=== PATIENT | female | born 1980 | race Caucasian/White ===

== ENCOUNTER 2016-10-08 08:20 | Day surgery (SDC) | payer OTHER ==
[2016-10-05 16:01] VITALS: BMI 26.6
[~2016-10-08 08:20] MED LIST: DEXAMETHASONE SOD PHOSPHATE 10 MG/ML 1 ML VIAL IV ONE; HEPARIN SODIUM,PORCINE 5,000 UNIT/ML 1 ML VIAL SQ ONE; HYDROmorphone 1 MG/ML 1 ML SYRINGE IVP PRN; LACTATED RINGERS 1,000 ML IV SCH; ONDANSETRON 4 MG/2 ML VIAL IVP ONE; Pre Op ABX Message 1 EACH MISC MISCELLANE ONE; SCOPOLAMINE 1.5MG/72HR PATCH TRANSDERM ONE
[2016-10-08] MEDS ORDERED: LIDOCAINE 1% 20 ML VIAL (10MG/ML) FOR IV START INTRADERMA ONE (08:56)
[2016-10-08] MEDS ORDERED: KETOROLAC 30 MG/ML 1 ML VIAL ONE (10:26)
[2016-10-08] MEDS ORDERED: PROPOFOL 10 MG/ML 20 ML VIAL IV ONE (10:26)
[2016-10-08] MEDS ORDERED: fentaNYL (PF) 50 MCG/ML 2 ML AMP ONE (10:26)
[2016-10-08] MEDS ORDERED: MIDAZOLAM 2 MG/2 ML VIAL ONE (10:26)
--- NOTE | 2016-10-08 10:30 | P.HPADDEND ---
H&P Addendum H&P Addendum Date: 10/08/16 Patient seen in the preoperative area. The patient has a nevus or possibly an accessory nipple at the 4 o'clock position of the area looked border area because our incision will be likely along the edge of the areola we discussed the options of excision of this nevus. We have decided to remove that at the time of surgery. This will be added to the consent form.
[2016-10-08] MEDS ORDERED: BUPIVACAINE (PF) 0.25% 30 ML VIAL SQ ONE ×2 (10:47)
[2016-10-08] MEDS ORDERED: LACTATED RINGERS 1,000 ML IV ONE (11:07)
[2016-10-08 11:25] VITALS: RESP 16; TEMP 97.5
[2016-10-08] MEDS ORDERED: NALOXONE 0.4 MG/ML 1 ML VIAL IV PRN (11:25)
[2016-10-08] MEDS ORDERED: HYDROcodone/APAP 5-325MG 1 EACH TAB PO PRN (11:30)
--- NOTE | 2016-10-08 11:38 | P.PCN ---
Date of Procedure: 10/08/16 Preoperative Diagnosis: Postoperative Diagnosis: Procedure(s) Performed: PREOPERATIVE DIAGNOSIS: Left breast mass, left breast nevus POSTOPERATIVE DIAGNOSIS: Same PROCEDURE: Breast biopsy with excision left breast nevus SURGEON: Shane EBL: Minimal ANESTHESIA: General COMPLICATIONS: None OPERATIVE PROCEDURE: Patient was placed in the operating table in the supine position. Her left breast was prepped and draped in the usual sterile fashion. An elliptical incision was made around the areolar border in the lower outer quadrant and the nevus was excised with this incision site. Dissection through the subcutaneous breast tissue laterally to the 4:[address] using electrocautery. The patient's palpable mass was excised with the use of electrocautery. The subcutaneous tissues were closed using 3-0 Vicryl sutures and the skin using interrupted 4-0 Monocryl sutures. Steri-Strips and sterile dressings were applied. DISPOSITION: Stable to recovery room Implants: Indications for Procedure: Operative Findings: Description of Procedure:
[2016-10-08] MEDS ORDERED: HYDROcodone/APAP 7.5-325MG 1 EACH TAB PO ONE (12:24)
[2016-10-08 12:38] VITALS: BP 108/70; PULSE 74
== END 2016-10-08 12:58 | disposition home or self-care (01) ==
LOC: OR 08:20
PROVIDERS: ATTEND Surgery
DX: N60.22 Fibroadenosis of left breast (principal); N60.12 Diffuse cystic mastopathy of left breast; D22.5 Melanocytic nevi of trunk; Z79.899 Other long term (current) drug therapy
CPT/HCPCS: 81025; 88305; 88307; 11403; 19101; J2250; J1644; J1100; J2405; J3010; J1885; J2704

== ENCOUNTER 2017-01-06 18:20 | Observation (INO) | payer OTHER ==
[2017-01-06] MEDS ORDERED: KETOROLAC 30 MG/ML 1 ML VIAL IVP STA (18:49)
[2017-01-06] MEDS ORDERED: SODIUM CHLORIDE 0.9% 1,000 ML IV ONE (18:49)
[2017-01-06] MEDS ORDERED: MORPHINE SULFATE 4 MG/ML SYRINGE IVP STA (18:49)
[2017-01-06 19:02] LABS: Basophils # (A) 0.1 k/uL (0-0.2); Basophils % (A) 0 %; CHCM 34.8; Eosinophils # (A) 0.2 k/uL (0-0.7); Eosinophils % (A) 1 %; HCT 42.6 % (34.0-46.0); HDW 2.48; HGB 14.4 gm/dL (11.4-16.0); Luc # (Auto) 0.15; Luc % (Auto) 1; Lymphocytes # (A) 1.7 k/uL (1.0-4.8); Lymphocytes % (A) 10 %; MCH 31.1 pg (25.0-35.0); MCHC 33.7 g/dL (31.0-37.0); MCV 92.3 fL (80.0-100.0); Mean Platelet Volume 7.4; Monocytes # (A) 0.8 k/uL (0-1.0); Monocytes % (A) 5 %; Neutrophils # (A) 13.8 k/uL (1.3-7.7); Neutrophils % (A) 83 %; RBC 4.61 m/uL (3.80-5.40); RDW 12.1 % (11.5-15.5); WBC 16.7 k/uL (3.8-10.6); WBC (Perox) 16.76
[2017-01-06] MEDS ORDERED: ONDANSETRON 4 MG/2 ML VIAL IVP STA (19:03)
[2017-01-06 19:07] LABS: Anion Gap 11 mmol/L; Blood Urea Nitrogen 15 mg/dL (7-17); Calcium 9.7 mg/dL (8.4-10.2); Carbon Dioxide 22 mmol/L (22-30); Chloride 107 mmol/L (98-107); Glucose 91 mg/dL (74-99); Non-African American GFR(MDRD) >60 (>60 ml/min/1.73 sqM); Potassium 4.2 mmol/L (3.5-5.1); Sodium 140 mmol/L (137-145)
[2017-01-06 19:31] LABS: Appearance,Urine Clear (Clear); Bacteria,Urine Many /hpf; Bilirubin,Urine Negative (Negative); Glucose,Urine (UA) Negative (Negative); Ketones,Urine Negative (Negative); Leukocyte Esterase,Urine Small (Negative); Nitrite,Urine Negative (Negative); PH, Urine 7.5 (5.0-8.0); Particle Count 3212; Protein,Urine Negative (Negative); RBC,Urine 2 /hpf (0-5); Specific Gravity,Urine 1.006 (1.001-1.035); Squamous Epithelial Cell,Urine <1 /hpf (0-4); UA Billing (MACRO vs. MICRO) MICRO; Urobilinogen,Urine <2.0 mg/dL (<2.0); WBC,Urine 10 /hpf (0-5)
--- NOTE | 2017-01-06 20:13 | CT ---
EXAMINATION TYPE: CT renal stones wo con DATE OF EXAM: 01/06/2017 HISTORY: Right flank pain CT DLP: 320.10 mGycm. Automated Exposure Control for Dose Reduction was Utilized. TECHNIQUE: CT scan of the abdomen and pelvis is performed without oral or IV contrast. COMPARISON: Previous study dated 12/06/2015 FINDINGS: Visualized portions of the lungs are clear. There is no pleural or pericardial fluid. The h eart is not enlarged. Within the abdomen, the liver, spleen and gallbladder are normal. Both adrenal glands are normal. There is no evidence of nephrolithiasis or hydronephrosis. There are stable phleboliths in the pelvis . No definite ureteral calculus is seen. Limited views of the pancreas are unremarkable. There is no significant retroperitoneal, iliac or inguinal adenopathy. The bladder is unremarkable. The uterus and ovaries are unremarkable. The cystic lesion in the right adnexa has resolved. There is no significant diverticular change and there is no radiographic evidence of diverticulitis. The appendix is normal. Small bowel caliber is normal. There is a small umbilical hernia containing fat only. The mouth measures 6.9 mm. No free air and no free fluid is seen. No bony lesion is seen. IMPRESSION: 1. NO EVIDENCE OF NEPHROLITHIASIS OR HYDRONEPHROSIS. 2. NORMAL APPENDIX. 3. SMALL UMBILICAL HERNIA CONTAINING FAT ONLY. 4. RESOLUTION OF THE CYSTIC MASS IN THE RIGHT ADNEXA.
[2017-01-06] MEDS ORDERED: cefTRIAXone IN SWFI 1,000 MG/10 ML SYRINGE IVP STA (20:31)
[2017-01-06] MEDS ORDERED: HYDROmorphone 1 MG/ML 1 ML SYRINGE IVP STA (20:40)
[2017-01-06] MEDS ORDERED: HYDROmorphone 0.5 MG/0.5 ML SYRINGE IVP PRN (20:42)
[2017-01-06] MEDS ORDERED: MORPHINE SULFATE 4 MG/ML SYRINGE IV PRN (20:42)
[2017-01-06] MEDS ORDERED: NALOXONE 0.4 MG/ML 1 ML VIAL IV PRN (20:42)
[2017-01-06] MEDS ORDERED: OXYMETAZOLINE 0.05% NASL SPRAY 1 SPRAY BOTTLE EA NOSTRIL PRN (20:43)
[2017-01-06] MEDS ORDERED: CYCLOBENZAPRINE 10 MG TAB PO PRN (20:43)
--- NOTE | 2017-01-06 20:45 | ED ---
Abdominal Pain HPI - General Chief Complaint: Abdominal Pain Stated Complaint: kidney stone Time Seen by Provider: 01/06/17 18:29 Source: patient Mode of arrival: ambulatory Limitations: no limitations - History of Present Illness Initial Comments: 36-year-old female presented for evaluation of right-sided flank pain over the last 5 days acutely worsening this morning. She states that originally she just had pain and some dysuria but today the pain acutely worsened to the point where she was unable to bear it or go to work. She denies any hematuria but states she does have increased frequency without foul smell or discoloration. She denies any vaginal bleeding or discharge, constipation or diarrhea, chest pain or shortness of breath. She states in no medications for the symptoms. She states to 3 weeks ago she was treated for urinary tract infection with antibiotics but is unsure what antibiotics they were. - Related Data Home Medications Medication Instructions Recorded Confirmed Cyclobenzaprine [Flexeril] 10 mg PO HS PRN 12/07/15 01/06/17 HYDROcodone/APAP 7.5-325MG [[place] 0.5 - 1 tab PO BID PRN 12/07/15 01/06/17 7.5-325] Gabapentin [Neurontin] 300 mg PO DAILY 10/05/16 01/06/17 Ibuprofen [Motrin] 800 mg PO BID PRN 01/06/17 01/06/17 Multivitamins, Thera [Multivitamin 1 tab PO DAILY 01/06/17 01/06/17 (formulary)] Norethindrone-Ethinyl Estrad 1 tab PO DAILY 01/06/17 01/06/17 [Tri-Norinyl 28 Tablet] Oxymetazoline HCl [Vicks Sinex] 3 spray EA NOSTRIL Q12H PRN 01/06/17 01/06/17 Allergies Allergy/AdvReac Type Severity Reaction Status Date / Time lorazepam [From Ativan] Allergy Rash/Hives Verified 01/06/17 19:27 Review of Systems ROS Statement: Those systems with pertinent positive or pertinent negative responses have been documented in the HPI. ROS Other: All systems not noted in ROS Statement are negative. Constitutional: Reports: chills. Denies: fever Eyes: Denies: eye pain, vision change ENT: Denies: ear pain, throat pain Respiratory: Denies: cough, dyspnea Cardiovascular: Denies: chest pain, palpitations Endocrine: Denies: fatigue, polydipsia Gastrointestinal: Reports: abdominal pain, nausea. Denies: vomiting, diarrhea, constipation, hematemesis, melena, hematochezia Genitourinary: Reports: urgency, dysuria, frequency. Denies: hematuria, discharge, abnormal menses, dyspareunia Musculoskeletal: Reports: back pain. Denies: joint swelling, arthralgia Skin: Denies: rash, lesions Neurological: Denies: headache, weakness Psychiatric: Denies: anxiety, depression Hematological/Lymphatic: Denies: easy bleeding, easy bruising Past Medical History Additional Past Medical History / Comment(s): kidney stones, back pain, L breast density, abnormal pap smears, ABNORMAL MAMMOGRAM, History of Any Multi-Drug Resistant Organisms: None Reported Past Surgical History: No Surgical Hx Reported Additional Past Surgical History / Comment(s): RT OVARIAN CYSTECTOMY/removal of ovary and fallopian tube, left lumpectomy Past Anesthesia/Blood Transfusion Reactions: No Reported Reaction Past Psychological History: No Psychological Hx Reported Smoking Status: Never smoker - Past Family History Son(s) Family Medical History: No Reported History Additional Family Medical History / Comment(s): High functioning autism General Exam Limitations: no limitations General appearance: alert, in distress (Significant) Head exam: Present: atraumatic, normocephalic, normal inspection Eye exam: Present: normal appearance, PERRL, EOMI. Absent: scleral icterus, conjunctival injection, periorbital swelling ENT exam: Present: normal exam, mucous membranes moist Neck exam: Present: normal inspection. Absent: tenderness, meningismus, lymphadenopathy Respiratory exam: Present: normal lung sounds bilaterally. Absent: respiratory distress, wheezes, rales, rhonchi, stridor Cardiovascular Exam: Present: normal rhythm, tachycardia, normal heart sounds. Absent: systolic murmur, diastolic murmur, rubs, gallop, clicks GI/Abdominal exam: Present: soft, normal bowel sounds. Absent: distended, tenderness, guarding, rebound, rigid Rectal exam: Present: deferred Extremities exam: Present: normal inspection, full ROM, normal capillary refill. Absent: tenderness, pedal edema, joint swelling, calf tenderness Back exam: Present: full ROM, CVA tenderness (R), paraspinal tenderness Neurological exam: Present: alert, oriented X3, CN II-XII intact Psychiatric exam: Present: normal affect, normal mood Skin exam: Present: warm, dry, intact, normal color. Absent: rash Course Vital Signs 01/06/17 01/06/17 18:25 20:50 Temperature 98.9 F Pulse Rate 112 H 111 H Respiratory 20 20 Rate Blood Pressure 147/78 113/73 O2 Sat by Pulse 100 100 Oximetry Medical Decision Making - Medical Decision Making 36-year-old female presented for evaluation of right-sided flank pain with radiation to her right lower quadrant abdomen. On physical examination she is in significant distress and is tearful in the bed. Right-sided CVA tenderness and right lower quadrant abdominal tenderness noted. No peritoneal signs of guarding, rigidity, rebound. Concern for pyelonephritis versus ureterolithiasis. Labs significant for leukocytosis as well as UTI. CT renal stone showed no structural uropathy. Patient diagnosed with pyelonephritis and started on IV antibiotics. Further pain control ordered. Patient was discussed with admitting physician who accepted without further request. Admission order placed and bed request submitted. - Lab Data Result diagrams: 01/06/17 18:20 01/06/17 18:20 Lab Results 01/06/17 01/06/17 01/06/17 Range/Units 18:20 18:20 19:00 WBC 16.7 H (3.8-10.6) k/uL RBC 4.61 (3.80-5.40) m/uL Hgb 14.4 (11.4-16.0) gm/dL Hct 42.6 (34.0-46.0) % MCV 92.3 (80.0-100.0) fL MCH 31.1 (25.0-35.0) pg MCHC 33.7 (31.0-37.0) g/dL RDW 12.1 (11.5-15.5) % Plt Count 201 (150-450) k/uL Neutrophils % 83 % Lymphocytes % 10 % Monocytes % 5 % Eosinophils % 1 % Basophils % 0 % Neutrophils # 13.8 H (1.3-7.7) k/uL Lymphocytes # 1.7 (1.0-4.8) k/uL Monocytes # 0.8 (0-1.0) k/uL Eosinophils # 0.2 (0-0.7) k/uL Basophils # 0.1 (0-0.2) k/uL Sodium 140 (137-145) mmol/L Potassium 4.2 (3.5-5.1) mmol/L Chloride 107 (98-107) mmol/L Carbon Dioxide 22 (22-30) mmol/L Anion Gap 11 mmol/L BUN 15 (7-17) mg/dL Creatinine 0.77 (0.52-1.04) mg/dL Est GFR (MDRD) Af Amer >60 (>60 ml/min/1.73 sqM) Est GFR (MDRD) Non-Af >60 (>60 ml/min/1.73 sqM) Glucose 91 (74-99) mg/dL Calcium 9.7 (8.4-10.2) mg/dL HCG, Qual Not Detected Urine Color Urine Appearance (Clear) Urine pH (5.0-8.0) Ur Specific [place] (1.001-1.035) Urine Protein (Negative) Urine Glucose (UA) (Negative) Urine Ketones (Negative) Urine Blood (Negative) Urine Nitrite (Negative) Urine Bilirubin (Negative) Urine Urobilinogen (<2.0) mg/dL Ur Leukocyte Esterase (Negative) Urine RBC (0-5) /hpf Urine WBC (0-5) /hpf Ur Squamous Epith Cells (0-4) /hpf Urine Bacteria (None) /hpf 01/06/17 Range/Units 19:09 WBC (3.8-10.6) k/uL RBC (3.80-5.40) m/uL Hgb (11.4-16.0) gm/dL Hct (34.0-46.0) % MCV (80.0-100.0) fL MCH (25.0-35.0) pg MCHC (31.0-37.0) g/dL RDW (11.5-15.5) % Plt Count (150-450) k/uL Neutrophils % % Lymphocytes % % Monocytes % % Eosinophils % % Basophils % % Neutrophils # (1.3-7.7) k/uL Lymphocytes # (1.0-4.8) k/uL Monocytes # (0-1.0) k/uL Eosinophils # (0-0.7) k/uL Basophils # (0-0.2) k/uL Sodium (137-145) mmol/L Potassium (3.5-5.1) mmol/L Chloride (98-107) mmol/L Carbon Dioxide (22-30) mmol/L Anion Gap mmol/L BUN (7-17) mg/dL Creatinine (0.52-1.04) mg/dL Est GFR (MDRD) Af Amer (>60 ml/min/1.73 sqM) Est GFR (MDRD) Non-Af (>60 ml/min/1.73 sqM) Glucose (74-99) mg/dL Calcium (8.4-10.2) mg/dL HCG, Qual Urine Color Light Yellow Urine Appearance Clear (Clear) Urine pH 7.5 (5.0-8.0) Ur Specific [place] 1.006 (1.001-1.035) Urine Protein Negative (Negative) Urine Glucose (UA) Negative (Negative) Urine Ketones Negative (Negative) Urine Blood Negative (Negative) Urine Nitrite Negative (Negative) Urine Bilirubin Negative (Negative) Urine Urobilinogen <2.0 (<2.0) mg/dL Ur Leukocyte Esterase Small H (Negative) Urine RBC 2 (0-5) /hpf Urine WBC 10 H (0-5) /hpf Ur Squamous Epith Cells <1 (0-4) /hpf Urine Bacteria Many H (None) /hpf Disposition Clinical Impression: Pyelonephritis Disposition: ADMITTED IP TO THIS [facility] Decision to Admit Reason: Admit from EC Decision Date: 01/06/17 Decision Time: 20:42
[2017-01-07] MEDS: HYDROmorphone 0.5 MG/0.5 ML SYRINGE IVP PRN ×3 (01:37→12:07)
[2017-01-07] MEDS: KETOROLAC 30 MG/ML 1 ML VIAL IVP PRN ×3 (01:38→15:27)
[2017-01-07] MEDS: ONDANSETRON 4 MG/2 ML VIAL IVP PRN ×2 (05:33→12:15)
[2017-01-07 07:44] LABS: Basophils % (A) 0 %; CH 31.8; CHCM 33.9; Eosinophils % (A) 0 %; HCT 38.7 % (34.0-46.0); HDW 2.47; HGB 12.8 gm/dL (11.4-16.0); Luc % (Auto) 1; Lymphocytes # (A) 1.5 k/uL (1.0-4.8); Lymphocytes % (A) 9 %; MCH 31.2 pg (25.0-35.0); MCHC 33.1 g/dL (31.0-37.0); MCV 94.2 fL (80.0-100.0); Mean Platelet Volume 7.5; Monocytes # (A) 0.9 k/uL (0-1.0); Monocytes % (A) 6 %; Neutrophils # (A) 13.3 k/uL (1.3-7.7); Neutrophils % (A) 83 %; RBC 4.12 m/uL (3.80-5.40); WBC 15.9 k/uL (3.8-10.6); WBC (Perox) 15.68
[2017-01-07 07:47] LABS: Anion Gap 9 mmol/L; Blood Urea Nitrogen 13 mg/dL (7-17); Calcium 8.9 mg/dL (8.4-10.2); Carbon Dioxide 21 mmol/L (22-30); Chloride 107 mmol/L (98-107); Glucose 93 mg/dL (74-99); Non-African American GFR(MDRD) >60 (>60 ml/min/1.73 sqM); Potassium 3.8 mmol/L (3.5-5.1); Sodium 137 mmol/L (137-145)
[2017-01-07] MEDS ORDERED: GABAPENTIN 300 MG CAP PO SCH ×2 (09:00→21:00)
[2017-01-07] MEDS: NORETHINDRONE ETHINYL ESTRAD PO SCH (11:47)
[2017-01-07] MEDS: cefTRIAXone IN SWFI 1,000 MG/10 ML SYRINGE IVP SCH (12:07)
[2017-01-07] MEDS ORDERED: HYDROmorphone 0.5 MG/0.5 ML SYRINGE IVP PRN (13:31)
[2017-01-07] MEDS ORDERED: ONDANSETRON 4 MG/2 ML VIAL IVP PRN (13:32)
--- NOTE | 2017-01-07 15:20 | US ---
EXAMINATION TYPE: US gallbladder DATE OF EXAM: 01/07/2017 COMPARISON:CT CLINICAL HISTORY: elevated liver enzymes. EXAM MEASUREMENTS: Liver Length: 16.4 cm Gallbladder Wall: 0.3 cm CBD: 0.3 cm Right Kidney: 10.3 x 2.7 x 5.4 cm Pancreas: wnl Liver: homogeneous Gallbladder: wnl Evidence for sonographic Hoang's sign: no CBD: wnl Right Kidney: wnl IMPRESSION: 1. No evidence of acute process.
[2017-01-07] MEDS ORDERED: traMADol 50 MG TAB PO PRN (15:47)
--- NOTE | 2017-01-07 15:53 | P.HPIM ---
History of Present Illness 36-year-old female came in with right flank pain going on for about Tuesday sharp in nature radiating to from right flank to the right upper epigastric area. Patient does have minimal tenderness on exam, when I was a valid the patient patient had an episode of vomiting clear liquid. Patient is on Toradol which is being discontinued and patient was started on tramadol patient is also on Dilaudid for pain which she says is helping her ration in the past, computed tomography scan of the abdomen did not show any nephrolithiasis patient was admitted for possibly a pyelonephritis although urine is not impressive except for mild elevation leukocyte esterase because of which I do not believe patient has actually UTI although it will be continued as etiology of her abdominal pain is not clear at this point of time. Patient may have gastritis and patient will be started on Protonix. Lipase will be ordered as well. Patient denied any fever chills flulike symptoms. Review of Systems REVIEW OF SYSTEMS: CONSTITUTIONAL: No fever, no malaise, no fatigue. HEENT: No recent visual problems or hearing problems. Denied any sore throat. CARDIOVASCULAR: No chest pain, orthopnea, PND, no palpitations, no syncope. PULMONARY: No shortness of breath, no cough, no hemoptysis. GASTROINTESTINAL: No diarrhea, NEUROLOGICAL: No headaches, no weakness, no numbness. HEMATOLOGICAL: Denies any bleeding or petechiae. GENITOURINARY: Denies any burning micturition, frequency, or urgency. MUSCULOSKELETAL/RHEUMATOLOGICAL: Denies any joint pain, swelling, or any muscle pain. ENDOCRINE: Denies any polyuria or polydipsia. The rest of the 14-point review of systems is negative. Past Medical History Additional Past Medical History / Comment(s): kidney stones, back pain, L breast density, abnormal pap smears, ABNORMAL MAMMOGRAM, History of Any Multi-Drug Resistant Organisms: None Reported Past Surgical History: No Surgical Hx Reported Additional Past Surgical History / Comment(s): RT OVARIAN CYSTECTOMY/removal of ovary and fallopian tube, left lumpectomy Past Anesthesia/Blood Transfusion Reactions: No Reported Reaction Past Psychological History: No Psychological Hx Reported Smoking Status: Never smoker - Past Family History Son(s) Family Medical History: No Reported History Additional Family Medical History / Comment(s): High functioning autism Medications and Allergies Home Medications Medication Instructions Recorded Confirmed Type Cyclobenzaprine [Flexeril] 10 mg PO HS PRN 12/07/15 01/06/17 History HYDROcodone/APAP 7.5-325MG [[place] 0.5 - 1 tab PO BID PRN 12/07/15 01/06/17 History 7.5-325] Gabapentin [Neurontin] 300 mg PO DAILY 10/05/16 01/06/17 History Ibuprofen [Motrin] 800 mg PO BID PRN 01/06/17 01/06/17 History Multivitamins, Thera [Multivitamin 1 tab PO DAILY 01/06/17 01/06/17 History (formulary)] Norethindrone-Ethinyl Estrad 1 tab PO DAILY 01/06/17 01/06/17 History [Tri-Norinyl 28 Tablet] Oxymetazoline HCl [Vicks Sinex] 3 spray EA NOSTRIL Q12H PRN 01/06/17 01/06/17 History Allergies Allergy/AdvReac Type Severity Reaction Status Date / Time lorazepam [From Ativan] Allergy Rash/Hives Verified 01/06/17 19:27 Physical Exam Vitals: Vital Signs Temp Pulse Pulse Resp BP BP Pulse Ox 01/07/17 07:00 98.5 F 100 16 106/62 97 01/06/17 23:00 99.0 F 113 H 20 111/68 98 01/06/17 20:50 111 H 20 113/73 100 01/06/17 18:25 98.9 F 112 H 20 147/78 100 Intake and Output 01/07/17 01/07/17 01/07/17 06:59 14:59 22:59 Intake Total 250 Output Total 2 Balance 248 Intake: Oral 250 Output: Emesis 2 Other: # Voids 1 1 PHYSICAL EXAMINATION: GENERAL: The patient is alert and oriented x3, not in any acute distress. Well developed, well nourished. HEENT: Pupils are round and equally reacting to light. EOMI. No scleral icterus. No conjunctival pallor. Normocephalic, atraumatic. No pharyngeal erythema. No thyromegaly. CARDIOVASCULAR: S1 and S2 present. No murmurs, rubs, or gallops. PULMONARY: Chest is clear to auscultation, no wheezing or crackles. ABDOMEN: Soft, minimal epigastric abdominal tenderness was appreciated, nondistended, normoactive bowel sounds. No palpable organomegaly. MUSCULOSKELETAL: No joint swelling or deformity. EXTREMITIES: No cyanosis, clubbing, or pedal edema. NEUROLOGICAL: Gross neurological examination did not reveal any focal deficits. SKIN: No rashes. Results CBC & Chem 7: 01/07/17 07:01 01/07/17 07:01 Labs: Abnormal Lab Results - Last 24 Hours (Table) 01/06/17 01/06/17 01/07/17 Range/Units 18:20 19:09 07:01 WBC 16.7 H 15.9 H (3.8-10.6) k/uL Neutrophils # 13.8 H 13.3 H (1.3-7.7) k/uL Carbon Dioxide (22-30) mmol/L Ur Leukocyte Esterase Small H (Negative) Urine WBC 10 H (0-5) /hpf Urine Bacteria Many H (None) /hpf 01/07/17 Range/Units 07:01 WBC (3.8-10.6) k/uL Neutrophils # (1.3-7.7) k/uL Carbon Dioxide 21 L (22-30) mmol/L Ur Leukocyte Esterase (Negative) Urine WBC (0-5) /hpf Urine Bacteria (None) /hpf Thrombosis Risk Factor Assmnt - Choose All That Apply Any of the Below Risk Factors Present?: No Assessment and Plan Plan: #1 right upper quadrant right flank and epigastric abdominal pain etiology is unclear will obtain lipase level and the patient will be treated for gastritis with Protonix X will be discontinued and instead will use tramadol. #2 leukocytosis although patient does not have any other signs or symptoms of infection my suspicion is extremely low that patient has UTI patient's leukocytosis may be reactive. #3 nausea vomiting: Probably due to gastritis or even pancreatitis which need to be ruled out at this time. #4 history of UTIs in the past, since source of her pain is not known will continue with antibiotics is living she has urinary tract infection although my suspicion is extremely low
[2017-01-07] MEDS: ACYCLOVIR 800 MG TAB PO SCH (17:39)
[2017-01-07] MEDS ORDERED: ACETAMINOPHEN TAB 325 MG TAB PO PRN (21:27)
[2017-01-07] MEDS: PANTOPRAZOLE 40 MG/10 ML VIAL IVP SCH (22:11)
[2017-01-07] MEDS: HYDROcodone/APAP 7.5-325MG 1 EACH TAB PO PRN (22:28)
[2017-01-08] MEDS: HYDROcodone/APAP 7.5-325MG 1 EACH TAB PO PRN ×2 (05:16→11:04)
[2017-01-08] MEDS: NORETHINDRONE ETHINYL ESTRAD PO SCH (07:59)
[2017-01-08 08:02] LABS: CH 31.1; CHCM 32.4; HCT 40.4 % (34.0-46.0); HDW 2.33; MCH 31.1 pg (25.0-35.0); MCHC 32.2 g/dL (31.0-37.0); MCV 96.6 fL (80.0-100.0); Mean Platelet Volume 8.1; RBC 4.19 m/uL (3.80-5.40); RDW 12.8 % (11.5-15.5); WBC 13.7 k/uL (3.8-10.6)
[2017-01-08] MEDS: ACYCLOVIR 800 MG TAB PO SCH (08:02)
[2017-01-08] MEDS: cefTRIAXone IN SWFI 1,000 MG/10 ML SYRINGE IVP SCH (08:02)
[2017-01-08] MEDS: PANTOPRAZOLE 40 MG/10 ML VIAL IVP SCH (08:02)
[2017-01-08 08:15] LABS: Anion Gap 8 mmol/L; Calcium 8.9 mg/dL (8.4-10.2); Carbon Dioxide 21 mmol/L (22-30); Chloride 105 mmol/L (98-107); Glucose 85 mg/dL (74-99); Non-African American GFR(MDRD) >60 (>60 ml/min/1.73 sqM); Sodium 134 mmol/L (137-145); Total Bilirubin 0.4 mg/dL (0.2-1.3); Total Protein 5.8 g/dL (6.3-8.2)
[2017-01-08 08:18] VITALS: BP 110/59; PULSE 94; RESP 16; TEMP 97.9
[2017-01-08 08:19] LABS: ALT 32 U/L (9-52); AST 23 U/L (14-36); Alkaline Phosphatase 48 U/L (38-126); Blood Urea Nitrogen 11 mg/dL (7-17)
--- NOTE | 2017-01-08 12:07 | P.DS ---
Providers Date of admission: 01/06/17 20:45 Attending physician: Carmen Cruz Primary care physician: Parker Thurston [facility] Course: Patient came in with abdominal pain. Patient may have gastritis, minimal patient's points to this pain in the paraspinal area there is some tenderness in the muscles on the right side of the midline. Patient's mostly musculoskeletal R patient may be malingering and she does have narcotic seeking behavior. Patient will be discharged on empiric Prilosec patient had an ultrasound of the abdomen and CAT scan of the abdomen both of which are essentially within normal limits I do not believe patient has urinary tract infection patient will be discharged today to follow up with primary care physician no narcotics were provided patient follows up with Dr. Taylor as an outpatient for pain management issues. Patient will be referred to the [facility] PHYSICAL EXAMINATION: GENERAL: The patient is alert and oriented x3, not in any acute distress. Well developed, well nourished. HEENT: Pupils are round and equally reacting to light. EOMI. No scleral icterus. No conjunctival pallor. Normocephalic, atraumatic. No pharyngeal erythema. No thyromegaly. CARDIOVASCULAR: S1 and S2 present. No murmurs, rubs, or gallops. PULMONARY: Chest is clear to auscultation, no wheezing or crackles. ABDOMEN: Soft, nontender, nondistended, normoactive bowel sounds. No palpable organomegaly. There is some tenderness in the right paraspinal area no posterior tibial angle tenderness MUSCULOSKELETAL: No joint swelling or deformity. EXTREMITIES: No cyanosis, clubbing, or pedal edema. NEUROLOGICAL: Gross neurological examination did not reveal any focal deficits. SKIN: No rashes. Pertinent Studies: #1 right upper quadrant right flank and epigastric abdominal pain #2 leukocytosis although patient does not have any other signs or symptoms of infection my suspicion is extremely low that patient has UTI patient's leukocytosis may be reactive. #3 nausea vomiting: Probably due to gastritis or even pancreatitis which need to be ruled out at this time. #4 history of UTIs in the past, since source of her pain is not known will continue with antibiotics is living she has urinary tract infection although my suspicion is extremely low Plan - Discharge Summary New Discharge Prescriptions: New [facility]epraz[facility]LOSEC[facility].dr No Action Cyclobenzaprine [Flexeril] 10 mg PO HS PRN PRN Reason: Pain HYDROcodone/APAP 7.5-325MG [[place] 7.5-325] 0.5 - 1 tab PO BID PRN PRN Reason: Pain Gabapentin [Neurontin] 300 mg PO DAILY Norethindrone-Ethinyl Estrad [Tri-Norinyl 28 Tablet] 1 tab PO DAILY Multivitamins, Thera [Multivitamin (formulary)] 1 tab PO DAILY Ibuprofen [Motrin] 800 mg PO BID PRN PRN Reason: Pain Oxymetazoline HCl [Vicks Sinex] 3 spray EA NOSTRIL Q12H PRN PRN Reason: Nasal Congestion Discharge Medication List Cyclobenzaprine [Flexeril] 10 mg PO HS PRN 12/07/15 [History] HYDROcodone/APAP 7.5-325MG [[place] 7.5-325] 0.5 - 1 tab PO BID PRN 12/07/15 [ History] Gabapentin [Neurontin] 300 mg PO DAILY 10/05/16 [History] Ibuprofen [Motrin] 800 mg PO BID PRN 01/06/17 [History] Multivitamins, Thera [Multivitamin (formulary)] 1 tab PO DAILY 01/06/17 [History ] Norethindrone-Ethinyl Estrad [Tri-Norinyl 28 Tablet] 1 tab PO DAILY 01/06/17 [ History] Oxymetazoline HCl [Vicks Sinex] 3 spray EA NOSTRIL Q12H PRN 01/06/17 [History] Omeprazole [PriLOSEC] 40 mg PO [id number] #14 capsule. 01/08/17 [Rx] Follow up Appointment(s)/Referral(s): Fidel Canales MD [Primary Care Provider] - 01/11/17 11:10 am Patient Instructions/Handouts: Gastritis (DC)
== END 2017-01-08 12:14 | disposition home or self-care (01) ==
LOC: EC 18:20 → 4MS4W 20:45
PROVIDERS: ADMIT Internal Medicine; ATTEND Internal Medicine
DX: R10.11 Right upper quadrant pain (principal); R10.13 Epigastric pain; R11.2 Nausea with vomiting, unspecified; D72.829 Elevated white blood cell count, unspecified; Z87.440 Personal history of urinary (tract) infections; Z79.899 Other long term (current) drug therapy; Z79.3 Long term (current) use of hormonal contraceptives; Z88.8 Allergy status to other drugs, medicaments and biological substances; Z87.442 Personal history of urinary calculi
CPT/HCPCS: 96376 ×2; 96375 ×2; 96361; 96374; 99285; 36415; 80053; 80048 ×2; 83690; 85025 ×2; 85027; 81001; 84703; 87502; 76705; 74150; G0378 ×3; J2270; J2405 ×2; J0696 ×3; J1885 ×2; J1170 ×2; C9113 ×2

== ENCOUNTER 2021-09-03 12:25 | Observation (INO) | payer OTHER ==
[2021-09-03] MEDS ORDERED: SODIUM CHLORIDE 0.9% 1,000 ML IV STA ×2 (13:05→14:31)
[2021-09-03 13:17] LABS: Glucose,Whole Blood 81 mg/dL (70-110)
--- NOTE | 2021-09-03 13:23 | ED ---
General Adult HPI - General Chief complaint: Syncope Stated complaint: Syncope Time Seen by Provider: 09/03/21 12:55 Source: patient, EMS, RN notes reviewed, old records reviewed Mode of arrival: EMS Limitations: no limitations - History of Present Illness Initial comments: Patient is a 41-year-old female with no significant past medical history except for chronic back pain for which she states takes her morning [place] as well as an evening muscle relaxer who presents emergency Department complaining of simple episodes. Patient was at work when she states she started feeling lightheaded with a head pressure sensation. Denies trauma. Denies injuring herself. States she did not fully pass out but was still hearing people's voices. 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 She states her body feels like it is vibrating and is heavy all over. Denies any sensory deficits. Denies any chest pain, shortness breath, abdominal pain, nausea, vomiting. Patient states she is not . Has no other acute complaints at this time. States this has not occurred previously. Denies any family medical history of brain aneurysms. Denies any family medical history of blood clots. Has no personal medical history of blood clots or brain aneurysms.Denies biting her tongue. Denies episodes of incontinence. - Related Data Home Medications Medication Instructions Recorded Confirmed Cyclobenzaprine [Flexeril] 10 mg PO TID 12/07/15 09/03/21 Gabapentin [Neurontin] 300 mg PO HS 10/05/16 09/03/21 HYDROcodone/APAP 10-325MG [[place] 1 tab PO BID PRN 09/03/21 09/03/21 10-325] Levonorgestrel/Ethin.estradiol 1 tab PO DAILY 09/03/21 09/03/21 [Levora-28 Tablet] Allergies Allergy/AdvReac Type Severity Reaction Status Date / Time lorazepam [From Ativan] Allergy Rash/Hives Verified 09/03/21 14:03 Review of Systems ROS Statement: Those systems with pertinent positive or pertinent negative responses have been documented in the HPI. Review of Systems: CONST: Denies fever EYES: Denies blurry vision ENT: Denies nasal congestion C/V: Denies Chest pain RESP: Denies shortness of breath GI: Denies abdominal pain : Denies dysuria SKIN: Denies rash. MSK: Denies joint pain. NEURO: Endorses generalized headache. Not worse headache of her life. ROS Other: All systems not noted in ROS Statement are negative. Past Medical History Additional Past Medical History / Comment(s): kidney stones, back pain, L breast density, abnormal pap smears, ABNORMAL MAMMOGRAM, History of Any Multi-Drug Resistant Organisms: None Reported Past Surgical History: No Surgical Hx Reported Additional Past Surgical History / Comment(s): RT OVARIAN CYSTECTOMY/removal of ovary and fallopian tube, left lumpectomy Past Anesthesia/Blood Transfusion Reactions: No Reported Reaction Past Psychological History: No Psychological Hx Reported - Past Family History Son(s) Family Medical History: No Reported History Additional Family Medical History / Comment(s): High functioning autism General Exam - General Exam Comments Initial Comments: General: Appears in no acute distress.Patient is drowsy, otherwise exam is relatively unremarkable. HEAD: Normal with no signs of head trauma. EYES: PERRLA, EOMI, conjunctiva normal, no discharge. Pupils are 3-4 mm and e qual bilaterally. ENT: Hearing grossly intact, normal oropharynx. RESPIRATORY: Clear breath sounds bilaterally. No wheezes, rales, or rhonchi. C/V: Regular rate and rhythm. S1 and S2 auscultated, no edema, peripheral pulses 2+ and intact throughout ABD: Abd is soft, nontender, nondistended EXT: Normal range of motion, no obvious deformity SKIN: No rashes or lesions observed on exposed skin. NEURO: Alert and oriented x 4. Cranial nerves II-XII intact. No focal sensory or strength deficits. NIH of 0. GCS of 15. Cerebellar function is intact as evident by normal finger to nose and heel to kendrick testing. Limitations: no limitations Course Vital Signs 09/03/21 09/03/21 09/03/21 12:30 12:37 12:40 Temperature 98.3 F Pulse Rate 85 Respiratory 16 Rate Blood Pressure 123/90 132/86 132/86 O2 Sat by Pulse 99 100 Oximetry 09/03/21 09/03/21 09/03/21 12:50 13:00 13:10 Temperature Pulse Rate 90 85 91 Respiratory Rate Blood Pressure 123/90 123/90 129/86 O2 Sat by Pulse 98 Oximetry 09/03/21 09/03/21 09/03/21 13:20 13:30 13:40 Temperature Pulse Rate 108 H Respiratory 34 H Rate Blood Pressure 129/86 129/86 144/100 O2 Sat by Pulse 100 Oximetry Medical Decision Making - Medical Decision Making Based on the patient's presentation and physical exam, it appears she suffered near syncopal episodes at work. Is complaining of mild head pressure sensation as well as lightheadedness. His no neurological deficits. Vital signs within normal limits. No other complaints at this time. I discussed with her that I cannot definitively rule out intracranial process or cardiac etiology at this time. She is continuing to complain of lightheadedness, and therefore I rec ommended we obtain CT imaging. I did discuss with radiology that we will add on a CT injury of the chest rule out any large PEs so we don't reintroduced IV contrast. There were any agreement this plan. She'll be started on 1 L fluid bolus. Vital signs are within normal limits and stable. EKG shows no signs of acute ischemia.Laboratory studies are all unremarkable including a normal lactic acid, normal blood sugar, undetectable troponin, negative test. UDS is positive for marijuana and opiates which the patient does endorse using. Negative for alcohol. No other findings at this time. CT brain and CT angiogram brain showed no acute intracranial processes. CT angiogram of the chest shows no signs of pulmonary embolism. On reevaluation, patient remains intermittently complaining of lightheadedness and "my body is vibrating." Family states she becomes unresponsive, however I was able to sternal rub her and she immediately responds. She has no focal deficits. No obvious signs of seizure activity. She is no history of seizures. I discussed the results with family members as well as the patient. I would like to admitted to observation. Neurology will be consulted. She was administered IV Keppra empirically for possible subclinical seizures. Cannot rule out psychogenic etiology for her current symptoms, symptoms do seem to worsen when family is at bedside. They do not seem as bad when they are not. She does have a history of anxiety but no other history of psychiatric issues. I discussed this with the admitting team, sound physician group of observation on-call. They were in agreement with this plan.Vital signs remained within normal limits at this time. - Lab Data Result diagrams: 09/03/21 13:10 09/03/21 13:10 Lab Results 07/14/22 07/14/22 07/14/22 Range/Units 13:10 13:10 13:10 WBC 6.9 (3.8-10.6) k/uL RBC 4.65 (3.80-5.40) m/uL Hgb 14.2 (11.4-16.0) gm/dL Hct 43.1 (34.0-46.0) % MCV 92.6 (80.0-100.0) fL MCH 30.5 (25.0-35.0) pg MCHC 33.0 (31.0-37.0) g/dL RDW 12.0 (11.5-15.5) % Plt Count 193 (150-450) k/uL MPV 8.4 Neutrophils % 57 % Lymphocytes % 35 % Monocytes % 5 % Eosinophils % 1 % Basophils % 1 % Neutrophils # 3.9 (1.3-7.7) k/uL Lymphocytes # 2.4 (1.0-4.8) k/uL Monocytes # 0.4 (0-1.0) k/uL Eosinophils # 0.1 (0-0.7) k/uL Basophils # 0.1 (0-0.2) k/uL PT 9.6 (9.0-12.0) sec INR 0.9 (<1.2) APTT 22.3 (22.0-30.0) sec Sodium 141 (137-145) mmol/L Potassium 3.9 (3.5-5.1) mmol/L Chloride 109 H (98-107) mmol/L Carbon Dioxide 25 (22-30) mmol/L Anion Gap 7 mmol/L BUN 10 (7-17) mg/dL Creatinine 0.79 (0.52-1.04) mg/dL Est GFR (CKD-EPI)AfAm >90 (>60 ml/min/1.73 sqM) Est GFR (CKD-EPI)NonAf >90 (>60 ml/min/1.73 sqM) Glucose 78 (74-99) mg/dL POC Glucose (mg/dL) (70-110) mg/dL POC Glu Sanding Line Operator ID Plasma Lactic Acid [place] (0.7-2.0) mmol/L Calcium 9.4 (8.4-10.2) mg/dL Magnesium 2.0 (1.6-2.3) mg/dL Total Bilirubin 0.3 (0.2-1.3) mg/dL AST 30 (14-36) U/L ALT 21 (4-34) U/L Alkaline Phosphatase 60 (38-126) U/L Troponin I (0.000-0.034) ng/mL Total Protein 7.0 (6.3-8.2) g/dL Albumin 4.3 (3.5-5.0) g/dL HCG, Qual Not Detected Urine Color Urine Appearance (Clear) Urine pH (5.0-8.0) Ur Specific Gary (1.001-1.035) Urine Protein (Negative) Urine Glucose (UA) (Negative) Urine Ketones (Negative) Urine Blood (Negative) Urine Nitrite (Negative) Urine Bilirubin (Negative) Urine Urobilinogen (<2.0) mg/dL Ur Leukocyte Esterase (Negative) Urine Opiates Screen (NotDetected) Ur Oxycodone Screen (NotDetected) Urine Methadone Screen (NotDetected) Ur Propoxyphene Screen (NotDetected) Ur Barbiturates Screen (NotDetected) U Tricyclic Antidepress (NotDetected) Ur Phencyclidine Scrn (NotDetected) Ur Amphetamines Screen (NotDetected) U Methamphetamines Scrn (NotDetected) U Benzodiazepines Scrn (NotDetected) Urine Cocaine Screen (NotDetected) U Marijuana (THC) Screen (NotDetected) Serum Alcohol <10 mg/dL 09/03/21 09/03/21 09/03/21 Range/Units 13:10 13:10 13:10 WBC (3.8-10.6) k/uL RBC (3.80-5.40) m/uL Hgb (11.4-16.0) gm/dL Hct (34.0-46.0) % MCV (80.0-100.0) fL MCH (25.0-35.0) pg MCHC (31.0-37.0) g/dL RDW (11.5-15.5) % Plt Count (150-450) k/uL MPV Neutrophils % % Lymphocytes % % Monocytes % % Eosinophils % % Basophils % % Neutrophils # (1.3-7.7) k/uL Lymphocytes # (1.0-4.8) k/uL Monocytes # (0-1.0) k/uL Eosinophils # (0-0.7) k/uL Basophils # (0-0.2) k/uL PT (9.0-12.0) sec INR (<1.2) APTT (22.0-30.0) sec Sodium (137-145) mmol/L Potassium (3.5-5.1) mmol/L Chloride (98-107) mmol/L Carbon Dioxide (22-30) mmol/L Anion Gap mmol/L BUN (7-17) mg/dL Creatinine (0.52-1.04) mg/dL Est GFR (CKD-EPI)AfAm (>60 ml/min/1.73 sqM) Est GFR (CKD-EPI)NonAf (>60 ml/min/1.73 sqM) Glucose (74-99) mg/dL POC Glucose (mg/dL) (70-110) mg/dL POC Glu Sanding Line Operator ID Plasma Lactic Acid [place] (0.7-2.0) mmol/L Calcium (8.4-10.2) mg/dL Magnesium (1.6-2.3) mg/dL Total Bilirubin (0.2-1.3) mg/dL AST (14-36) U/L ALT (4-34) U/L Alkaline Phosphatase (38-126) U/L Troponin I <0.012 (0.000-0.034) ng/mL Total Protein (6.3-8.2) g/dL Albumin (3.5-5.0) g/dL HCG, Qual Urine Color Colorless Urine Appearance Clear (Clear) Urine pH 7.5 (5.0-8.0) Ur Specific Gary 1.004 (1.001-1.035) Urine Protein Negative (Negative) Urine Glucose (UA) Negative (Negative) Urine Ketones Negative (Negative) Urine Blood Negative (Negative) Urine Nitrite Negative (Negative) Urine Bilirubin Negative (Negative) Urine Urobilinogen <2.0 (<2.0) mg/dL Ur Leukocyte Esterase Negative (Negative) Urine Opiates Screen Detected H (NotDetected) Ur Oxycodone Screen Not Detected (NotDetected) Urine Methadone Screen Not Detected (NotDetected) Ur Propoxyphene Screen Not Detected (NotDetected) Ur Barbiturates Screen Not Detected (NotDetected) U Tricyclic Antidepress Not Detected (NotDetected) Ur Phencyclidine Scrn Not Detected (NotDetected) Ur Amphetamines Screen Not Detected (NotDetected) U Methamphetamines Scrn Not Detected (NotDetected) U Benzodiazepines Scrn Not Detected (NotDetected) Urine Cocaine Screen Not Detected (NotDetected) U Marijuana (THC) Screen Detected H (NotDetected) Serum Alcohol mg/dL 09/03/21 09/03/21 Range/Units 13:15 13:50 WBC (3.8-10.6) k/uL RBC (3.80-5.40) m/uL Hgb (11.4-16.0) gm/dL Hct (34.0-46.0) % MCV (80.0-100.0) fL MCH (25.0-35.0) pg MCHC (31.0-37.0) g/dL RDW (11.5-15.5) % Plt Count (150-450) k/uL MPV Neutrophils % % Lymphocytes % % Monocytes % % Eosinophils % % Basophils % % Neutrophils # (1.3-7.7) k/uL Lymphocytes # (1.0-4.8) k/uL Monocytes # (0-1.0) k/uL Eosinophils # (0-0.7) k/uL Basophils # (0-0.2) k/uL PT (9.0-12.0) sec INR (<1.2) APTT (22.0-30.0) sec Sodium (137-145) mmol/L Potassium (3.5-5.1) mmol/L Chloride (98-107) mmol/L Carbon Dioxide (22-30) mmol/L Anion Gap mmol/L BUN (7-17) mg/dL Creatinine (0.52-1.04) mg/dL Est GFR (CKD-EPI)AfAm (>60 ml/min/1.73 sqM) Est GFR (CKD-EPI)NonAf (>60 ml/min/1.73 sqM) Glucose (74-99) mg/dL POC Glucose (mg/dL) 81 (70-110) mg/dL POC Glu Sanding Line Operator Katie Weber T Plasma Lactic Acid [place] 1.0 (0.7-2.0) mmol/L Calcium (8.4-10.2) mg/dL Magnesium (1.6-2.3) mg/dL Total Bilirubin (0.2-1.3) mg/dL AST (14-36) U/L ALT (4-34) U/L Alkaline Phosphatase (38-126) U/L Troponin I (0.000-0.034) ng/mL Total Protein (6.3-8.2) g/dL Albumin (3.5-5.0) g/dL HCG, Qual Urine Color Urine Appearance (Clear) Urine pH (5.0-8.0) Ur Specific Gary (1.001-1.035) Urine Protein (Negative) Urine Glucose (UA) (Negative) Urine Ketones (Negative) Urine Blood (Negative) Urine Nitrite (Negative) Urine Bilirubin (Negative) Urine Urobilinogen (<2.0) mg/dL Ur Leukocyte Esterase (Negative) Urine Opiates Screen (NotDetected) Ur Oxycodone Screen (NotDetected) Urine Methadone Screen (NotDetected) Ur Propoxyphene Screen (NotDetected) Ur Barbiturates Screen (NotDetected) U Tricyclic Antidepress (NotDetected) Ur Phencyclidine Scrn (NotDetected) Ur Amphetamines Screen (NotDetected) U Methamphetamines Scrn (NotDetected) U Benzodiazepines Scrn (NotDetected) Urine Cocaine Screen (NotDetected) U Marijuana (THC) Screen (NotDetected) Serum Alcohol mg/dL - EKG Data -: EKG Interpreted by Me EKG Comments: 12-lead Electrocardiogram Interpretation Note EKG was reviewed and interpreted by myself. 12-lead ECG performed at 1242 is interpreted by me as revealing normal sinus rhythm at a rate of 82 beats per minute. [place] is normal. There were no ST or T wave abnormalities to suggest myocardial ischemia or injury. R wave progression across the precordium was satisfactory. By my interpretation this EKG is non-diagnostic for acute ischemia. Disposition Clinical Impression: Lightheadedness Narrative: seizure vs. pseudoseizure Disposition: ADMITTED IP TO THIS HOSP Condition: Stable Additional Instructions: Patient informed of [place] state law stating no driving until free from loss of consciousness for 6 months. Patient also instructed to avoid climbing ladders, operating dangerous or heavy machinery or unsupervised swimming until free from having any episodes of loss of consciousness for at least 6 months. Referrals: None,Stated [Primary Care Provider] - 1-2 days Time of Disposition: 14:35
[2021-09-03 13:31] LABS: Appearance,Urine Clear (Clear); Bilirubin,Urine Negative (Negative); Blood,Urine Negative (Negative); Color,Urine Colorless; Glucose,Urine (UA) Negative (Negative); Ketones,Urine Negative (Negative); Leukocyte Esterase,Urine Negative (Negative); Nitrite,Urine Negative (Negative); PH, Urine 7.5 (5.0-8.0); Protein,Urine Negative (Negative); Specific Gravity,Urine 1.004 (1.001-1.035); Urobilinogen,Urine <2.0 mg/dL (<2.0)
[2021-09-03 13:36] LABS: Basophils # (A) 0.1 k/uL (0-0.2); Basophils % (A) 1 %; Eosinophils # (A) 0.1 k/uL (0-0.7); Eosinophils % (A) 1 %; HCT 43.1 % (34.0-46.0); HGB 14.2 gm/dL (11.4-16.0); Lymphocytes # (A) 2.4 k/uL (1.0-4.8); Lymphocytes % (A) 35 %; MCH 30.5 pg (25.0-35.0); MCV 92.6 fL (80.0-100.0); Mean Platelet Volume 8.4; Monocytes # (A) 0.4 k/uL (0-1.0); Monocytes % (A) 5 %; Neutrophils # (A) 3.9 k/uL (1.3-7.7); Neutrophils % (A) 57 %; Platelet Count 193 k/uL (150-450); RBC 4.65 m/uL (3.80-5.40); WBC 6.9 k/uL (3.8-10.6)
[2021-09-03 13:40] LABS: ALT 21 U/L (4-34); AST 30 U/L (14-36); African American GFR (CKD) >90 (>60 ml/min/1.73 sqM); Albumin 4.3 g/dL (3.5-5.0); Alcohol <10 mg/dL; Alkaline Phosphatase 60 U/L (38-126); Anion Gap 7 mmol/L; Blood Urea Nitrogen 10 mg/dL (7-17); Calcium 9.4 mg/dL (8.4-10.2); Carbon Dioxide 25 mmol/L (22-30); Chloride 109 mmol/L (98-107); Glucose 78 mg/dL (74-99); Non-African American GFR(CKD) >90 (>60 ml/min/1.73 sqM); Potassium 3.9 mmol/L (3.5-5.1); Sodium 141 mmol/L (137-145); Total Bilirubin 0.3 mg/dL (0.2-1.3)
[2021-09-03] MEDS ORDERED: ONDANSETRON 4 MG/2 ML VIAL IVP STA (13:40)
[2021-09-03 13:45] LABS: INR 0.9 (<1.2); Partial Thromboplastin Time 22.3 sec (22.0-30.0); Prothrombin Time 9.6 sec (9.0-12.0)
[2021-09-03 13:46] LABS: HCG,Qualitative Serum Not Detected
[2021-09-03 13:47] LABS: Amphetamine Screen,Urine Not Detected (NotDetected); Barbiturate Screen,Urine Not Detected (NotDetected); Benzodiazepines Screen,Urine Not Detected (NotDetected); Cocaine Screen,Urine Not Detected (NotDetected); Methadone Screen, Urine Not Detected (NotDetected); Opiate Screen,Urine Detected (NotDetected); Oxycodone Screen, Urine Not Detected (NotDetected); Phencyclidine Screen,Urine Not Detected (NotDetected); Tricyclic Antidepressant,Urine Not Detected (NotDetected); Urn Cannabinoid Scrn Detected (NotDetected)
--- NOTE | 2021-09-03 13:53 | CT ---
EXAMINATION TYPE: CT brain wo con DATE OF EXAM: 09/03/2021 COMPARISON: CT brain November 25, 2012 HISTORY: Syncope. CT DLP: 1089 mGycm. Automated Exposure Control for Dose Reduction was Utilized. TECHNIQUE: CT scan of the head is performed without contrast. FINDINGS: There is no acute intracranial hemorrhage, mass effect, or midline shift identified. The ventricles and sulci are within normal limits in size. Gomez-white matter differentiation is maintain ed. No suspicious opacification of mastoid air cells. The globes are intact and the visualized sinuse s are clear. IMPRESSION: Unremarkable study. No significant change from prior.
--- NOTE | 2021-09-03 13:55 | CT ---
EXAMINATION TYPE: CT chest angio for PE CT DLP: 467.9 mGycm, Automated exposure control for dose reduction was used. DATE OF EXAM: 09/03/2021 1:39 PM COMPARISON: No direct comparisons. CLINICAL INDICATION:Female, 41 years old with history of headache, syncope; Syncope. TECHNIQUE/CONTRAST: CTA scan of the thorax is performed with IV Contrast, patient injected with 60ml mL of Isovue 370, pu lmonary embolism protocol. MIP images are created and reviewed. FINDINGS: Pulmonary Artery: There is no evidence for a filling defect within the pulmonary vasculature to sugge st acute pulmonary embolism. The pulmonary artery is of normal size. Lungs/Pleura: No evidence of focal consolidation, pleural effusion or pneumothorax. Bibasilar depende nt atelectasis. Airway: Large airways are patent. Heart: Heart is within normal limits for size.. Vasculature: No evidence of aortic aneurysm. Mediastinum: No gross evidence of adenopathy. Musculoskeletal: No acute osseous abnormalities Soft Tissues: Unremarkable. Lower neck: No significant findings. Upper Abdomen: No significant findings. IMPRESSION: No evidence of pulmonary embolism or acute thoracic process.
--- NOTE | 2021-09-03 14:22 | CT ---
EXAMINATION TYPE: CT angio head neck CT DLP: 477.6 mGycm, Automated exposure control for dose reduction was used. DATE OF EXAM: 09/03/2021 2:00 PM COMPARISON: CT head of the same date. CLINICAL INDICATION:Female, 41 years old with history of syncope; PHH, Syncope. TECHNIQUE: Axially acquired helical CT angiogram of the head and neck was obtained with contrast util izing 60 cc of Isovue-370 administered intravenously. Axial images are supplemented with 3D reconstru ctions which were post-processed at an independent workstation. NASCET criteria used. FINDINGS: CTA HEAD: No evidence of acute intracranial hemorrhage, mass effect, or midline shift. The ventricles, sulci, a nd cisterns are unremarkable. The visualized portions of the internal carotid arteries, middle cerebral arteries, anterior cerebral arteries, and posterior cerebral arteries are patent. The basilar and vertebral arteries are patent. CTA NECK: Right Carotid System: The common carotid artery and external carotid artery are patent. The carotid bifurcation demonstrate s no evidence of hemodynamically significant stenosis. The remaining portions of the internal carotid artery demonstrate normal size without significant narrowing. Left Carotid System: The common carotid artery and external carotid artery are patent. The carotid bifurcation demonstrate s no evidence of hemodynamically significant stenosis. The remaining portions of the internal carotid artery demonstrate normal size without significant narrowing. Vertebral arteries are patent without evidence hemodynamically significant stenosis. There is a three-vessel aortic arch. The origins of the great vessels are patent. No evidence of hemo dynamically significant stenosis. IMPRESSION: 1. No evidence of dissection of the cervical internal carotid arteries or vertebral arteries or any e vidence of significant stenosis at the carotid bifurcations. 2. No evidence of high-grade stenosis or intracranial aneurysm.
[2021-09-03] MEDS ORDERED: diphenhydrAMINE 50 MG/ML 1 ML VIAL IVP STA (14:30)
[2021-09-03] MEDS ORDERED: NALOXONE 0.4 MG/ML 1 ML VIAL IV PRN (14:31)
[2021-09-03] MEDS ORDERED: HYDROcodone/APAP 10-325MG 1 EACH TAB PO PRN (14:34)
[2021-09-03] MEDS ORDERED: ONDANSETRON 4 MG/2 ML VIAL IVP PRN (14:36)
[2021-09-03] MEDS ORDERED: levETIRAcetam IV 2,000 MG in SODIUM CHLORIDE 0.9% 250 ML IVPB ONE (15:00)
--- NOTE | 2021-09-03 18:25 | P.HPIM ---
History of Present Illness H&P Date: 09/03/21 History of Presenting Illness: Patient is a very pleasant 41-year-old female with a past medical history of chronic back pain and cannabis use. She presented to the emergency department with a chief complaint of syncopal episode. Patient reported while at work she began to feel lightheaded and blacked out. Patient reports she was not completely unresponsive as she could hear people's voices and felt as though her body is vibrating all over. She underwent full evaluation in the emergency department. CBC, CMP, and coags all unremarkable. Troponin less than 0.012. Lactic acid normal findings at 1.0. Urinalysis negative for infection. Urine drug screen positive for opiates and marijuana. EKG showing normal sinus rhythm 82 bpm with no noted T-wave or ST abnormalities. CT head unremarkable. CTA head and neck also negative for acute findings. CT chest also negative for acute PE. Urine hCG was negative for . Patient reported prior to this reported episode she has had no recent illnesses or infection, fevers, chills, diaphoresis, headaches, chest pain, palpitations, shortness of breath, cough or congestion, abdominal pain, nausea, vomiting, or experiencing any numbness/tingling/weakness in her extremities. Patient reports during this syncopal like episode that she did not bite her tongue or experiencing any involuntary loss of bowel or bladder. Patient has been admitted under our services with consultation to cardiology and neurology. Patient reports that the episodes of feeling as though her body is vibrating continue. Review of systems: Pertinent positives and negatives as discussed in HPI, a complete review of systems was performed and all other systems are negative. Physical exam: Vital signs reviewed and stable. General: Nontoxic, no distress and appears stated age. Derm: Skin warm and dry, normal coloration for ethnicity. Head: Atraumatic, normocephalic and symmetric. Eyes: EOMs intact, no lid lag, and anicteric sclera Mouth: no lip lesions, mucus membranes moist Cardiovascular: regular rate and rhythm with normal S1S2, no murmur, positive posterior tibial pulses bilaterally, and cap refill < 2 seconds. Lungs: Respirations even, regular, and unlabored on room air. Lungs CTA bilaterally, no rhonchi, no rales, no wheezing, and no accessory muscle usage. Abdominal: soft, nontender to palpation, no guarding, no appreciable organomegaly Ext: ROM intact. No gross muscle atrophy, no edema, no contractures Neuro: Speech clear, face symmetrical and CN II-XII grossly intact with no noted focal neuro deficits Psych: Alert and oriented to person, place, time, and situation. Appropriate and pleasant affect. Assessment and Plan of Care: Syncopal episode -Patient admitted to observation for continued overnight monitoring. -Lactic acid negative -Neurology consulted -Cardiology consulted -Patient was started on Keppra 500 mg every 12 hours in ED we will continue until further recommendations by neurology. -Echocardiogram to be completed. -Neurology recommending MRI and EEG at this time -Telemetry monitoring -Seizure precautions, fall precautions, and aspiration precautions in place -Neuro checks Chronic back pain -Continue Neurontin 300 mg nightly and hydrocodone 10/325 mg tablets, we will hold Flexeril at this time. The patient is admitted with an anticipated less than 2 midnight stay for ev aluation of syncopal episode CODE STATUS: Full code DVT prophylaxis: Heparin Discussed with: Patient, patient's family members at bedside and RN Anticipated discharge date: Tomorrow Anticipated discharge place: Home A total of 40 minutes was spent on the care of this complex patient more than 50% of the time was spent in counseling and care coordination. I reviewed the documentation as provided by the EDU above, who is the original author of this note. I agree with the documented assessment and plan, with the following changes: none Past Medical History Additional Past Medical History / Comment(s): kidney stones, back pain, L breast density, abnormal pap smears, ABNORMAL MAMMOGRAM, History of Any Multi-Drug Resistant Organisms: None Reported Past Surgical History: No Surgical Hx Reported Additional Past Surgical History / Comment(s): RT OVARIAN CYSTECTOMY/removal of ovary and fallopian tube, left lumpectomy Past Anesthesia/Blood Transfusion Reactions: No Reported Reaction Past Psychological History: No Psychological Hx Reported - Past Family History Son(s) Family Medical History: No Reported History Additional Family Medical History / Comment(s): High functioning autism Medications and Allergies Home Medications Medication Instructions Recorded Confirmed Type Gabapentin [Neurontin] 300 mg PO HS 10/05/16 09/03/21 History HYDROcodone/APAP 10-325MG [[place] 1 tab PO BID PRN 09/03/21 09/03/21 History 10-325] Levonorgestrel/Ethin.estradiol 1 tab PO DAILY 09/03/21 09/03/21 History [Levora-28 Tablet] Allergies Allergy/AdvReac Type Severity Reaction Status Date / Time lorazepam [From Ativan] Allergy Rash/Hives Verified 09/03/21 14:03 Physical Exam Vitals: Vital Signs Temp Pulse Resp BP Pulse Ox 09/03/21 13:40 108 H 34 H 144/100 100 09/03/21 13:30 129/86 09/03/21 13:20 129/86 09/03/21 13:10 91 129/86 09/03/21 13:00 85 123/90 98 09/03/21 12:50 90 123/90 09/03/21 12:40 132/86 09/03/21 12:37 132/86 100 09/03/21 12:30 98.3 F 85 16 123/90 99 Intake and Output 09/02/21 09/03/21 09/03/21 22:59 06:59 14:59 Other: Weight 61.235 kg Results CBC & Chem 7: 09/04/21 04:00 09/04/21 04:00 Labs: Abnormal Lab Results - Last 24 Hours (Table) 09/03/21 09/03/21 Range/Units 13:10 13:10 Chloride 109 H (98-107) mmol/L Urine Opiates Screen Detected H (NotDetected) U Marijuana (THC) Screen Detected H (NotDetected)
[2021-09-03] MEDS: GABAPENTIN 300 MG CAP PO SCH (20:01)
[2021-09-03] MEDS: levETIRAcetam IV 500 MG in SODIUM CHLORIDE 0.9% 100 ML IVPB SCH (20:31)
[2021-09-03] MEDS: HEPARIN SODIUM,PORCINE/PF 5,000 UNIT/0.5 ML SYRINGE SQ SCH (22:54)
[2021-09-04 08:39] LABS: Basophils # (A) 0.06 X 10*3/uL (0.00-0.10); Basophils % (A) 0.9 %; Eosinophils # (A) 0.16 X 10*3/uL (0.04-0.35); Eosinophils % (A) 2.5 %; HCT 40.3 % (37.2-46.3); HGB 12.9 g/dL (12.0-15.0); Immature Grans, Automated 0.2 %; Lymphocytes # (A) 2.69 X 10*3/uL (0.90-5.00); Lymphocytes % (A) 42.4 %; MCH 29.9 pg (27.0-32.0); MCV 93.5 fL (80.0-97.0); Monocytes # (A) 0.71 X 10*3/uL (0.20-1.00); Monocytes % (A) 11.2 %; NRBC Per 100 WBC 0 /100 WBCS (0.0-0.0); Neutrophils # (A) 2.72 X 10*3/uL (1.80-7.70); Neutrophils % (A) 42.8 %; Platelet Count 177 X 10*3/uL (140-440); RBC 4.31 X 10*6/uL (4.10-5.20); RDW 12.7 % (11.5-14.5); WBC 6.35 X 10*3/uL (4.50-10.00)
--- NOTE | 2021-09-04 08:55 | P.CNNES ---
History of Present Illness Consult date: 09/03/21 Requesting physician: Rosalino Giron Reason for Consult: syncope vs possible seizure vs pseudoseizure History of Present Illness: Patient is a 41-year-old female, otherwise healthy, came to the hospital with syncopal spell, and then seizure type spells. Patient's 2 children and patient's mom were present at the time of this interview. Patient and her mom states that she woke up at 5:30 AM and was feeling fine. No symptoms. 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 At around 11 AM, she felt weird, and she felt that it was just that she was hungry. She went to the file room, and felt like a "roller coaster", and her face went red, and then white and she started passing out, and next thing she woke up in the chair. Apparently patient went limp and the coworkers caught her and they start in the chair. From there on worse, she kept on "blacking out". They performed EKG on her in the blood pressure was checked, which was 152 systolic, which was high for her, as it usually runs were intense/60s. Patient did not hit her head, as the coworkers caught her. Patient states that she did have her breakfast as usual in the morning. She was not dehydrated. Patient also complaining of chest pain, and also complaining of burning sensation involving back of the head like pounding, like a chandra. Patient has been complaining of numbness of the right arm and both legs. She describes this numbness from fingertips to the shoulder (only involving the right upper extremity) and bilateral lower extremities from toes up to the groin bilaterally. She has been having spells, in which her body trembles, bodies stiffens up, and she does make eye contact, follow directions during this event. Her face appears flushed because of Valsalva. This episode resolves in about 30-40 seconds. I personally witnessed one of the spell, appears nonepileptic in nature. ED staff has noticed that these episodes are worse when the family is present close to her. Patient underwent computed tomography scan of the head which is normal. I personally reviewed and was normal. CTA of head and neck showed no evidence of dissection of the cervical internal carotid arteries or vertebral arteries or any evidence of significant stenosis at the carotid bifurcations. No evidence of high-grade stenosis or intracranial aneurysm. EKG shows sinus rhythm. Blood tests shows normal CBC, PT/PTT, normal CMP, hepatic panel, troponin, negative hCG, UA is negative, urine drug screen positive for opiates and marijuana. Blood alcohol level negative. Patient was given Benadryl IV, and the spasms have improved. Patient has been given Keppra 2 g IV empirically. Patient denies any history of diabetes, hypertension, any tobacco or alcohol u se. Patient states that around 13 years ago she had an episode of panic attack, when she was under loss of stress because of undergoing divorce. At present patient is under a lot of stress because she is working, a single mom, looking for a house, planning a graduation alliance party for her son. At present she lives in a home with 2 kids. Patient takes gabapentin, Flexeril and Alpha. She has back problems for last 10 years. She is "spur on the spine". She does take control pills for last 8 years. Review of Systems As above in detail. All other 14 point review of systems reviewed and unremarkable. Past Medical History Additional Past Medical History / Comment(s): kidney stones, back pain, L breast density, abnormal pap smears, ABNORMAL MAMMOGRAM, History of Any Multi-Drug Resistant Organisms: None Reported Past Surgical History: No Surgical Hx Reported Additional Past Surgical History / Comment(s): RT OVARIAN CYSTECTOMY/removal of ovary and fallopian tube, left lumpectomy Past Anesthesia/Blood Transfusion Reactions: No Reported Reaction Past Psychological History: No Psychological Hx Reported - Past Family History Son(s) Family Medical History: No Reported History Additional Family Medical History / Comment(s): High functioning autism Mother Family Medical History: No Reported History Father Additional Family Medical History / Comment(s): pulmonary fibrosis, parkinsons Medications and Allergies Home Medications Medication Instructions Recorded Confirmed Type Cyclobenzaprine [Flexeril] 10 mg PO TID 12/07/15 09/03/21 History Gabapentin [Neurontin] 300 mg PO HS 10/05/16 09/03/21 History HYDROcodone/APAP 10-325MG [Alpha 1 tab PO BID PRN 09/03/21 09/03/21 History 10-325] Levonorgestrel/Ethin.estradiol 1 tab PO DAILY 09/03/21 09/03/21 History [Levora-28 Tablet] Allergies Allergy/AdvReac Type Severity Reaction Status Date / Time lorazepam [From Ativan] Allergy Rash/Hives Verified 09/03/21 14:03 Physical Examination - Vital Signs Vital Signs: Vital Signs Temp Pulse Resp BP Pulse Ox 09/03/21 15:10 103 H 16 125/82 100 09/03/21 13:40 108 H 34 H 144/100 100 09/03/21 13:30 129/86 09/03/21 13:20 129/86 09/03/21 13:10 91 129/86 09/03/21 13:00 85 123/90 98 09/03/21 12:50 90 123/90 09/03/21 12:40 132/86 09/03/21 12:37 132/86 100 09/03/21 12:30 98.3 F 85 16 123/90 99 Intake and Output 09/03/21 09/03/21 09/03/21 06:59 14:59 22:59 Other: Weight 61.235 kg Patient is a middle aged female, in no acute distress. Patient is alert awake oriented to time place and person. Speech and language functions are normal. Attention, concentration and fund of knowledge is adequate. Patient can name and repeat very well. No aphasia or dysarthria. On cranial examination, pupils are equal, round and reacting to light, visual fi elds are full on confrontation, with no neglect on double simultaneous stimulation. Her extraocular muscles are intact with no nystagmus. Face is symmetric, tongue protrudes to the midline. Palatal elevation and sensation normal, hearing and shoulder shrug normal, facial sensation normal. Shoulder shrug normal. On muscle strength testing, (right/left) deltoid 4/5, biceps 4/5, triceps 4/5, video game engineer 4/5, hip flexion 4/4, ankle dorsiflexion 4-5-/5-, plantar flexion varies from 5/5 to 4+/4+. Patient has a very inconsistent response to muscle strength testing on the right side as well as in the ankles. Deep tendon reflexes are very symmetric, 2 all over and plantars downgoing bilaterally. No clonus. Sensory to touch is decreased sensation in the right arm, from fingers to the shoulder, but normal in the left upper limb. Patient has numbness for touch in both lower limbs from toes up to the groin bilaterally. Cerebellar function showed no ataxia for [id number] testing. No dysdi adochokinesia. Tone and bulk of muscles normal. Gait deferred. On general examination, there is no carotid bruit or murmur, S1-S2 audible. Abdomen is soft nontender. No organomegaly, bowel sounds present. Chest is clear. Peripheral pulses are present. No edema. 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 Events appears nonepileptic in nature. * Agree with Keppra 500 mg twice a day for now, until workup is completed. * MRI Brain and Cervical spine with and without contrast. * Discussed with patient's family in detail. * Neurology will follow. Thank you for the consult.
[2021-09-04 09:11] LABS: African American GFR (CKD) 111.4 (60.0-200.0); Anion Gap 10.3 mmol/L (10.00-18.00); BUN/Creat Ratio 9.8 Ratio (12.00-20.00); Blood Urea Nitrogen 7.5 mg/dL (9.0-27.0); Calcium 8.5 mg/dL (8.7-10.3); Carbon Dioxide 20.5 mmol/L (20.0-27.5); Non-African American GFR(CKD) 96.1 (60.0-200.0); Potassium 4.2 mmol/L (3.5-5.5)
[2021-09-04] MEDS: HEPARIN SODIUM,PORCINE/PF 5,000 UNIT/0.5 ML SYRINGE SQ SCH ×3 (09:14→23:02)
[2021-09-04] MEDS: levETIRAcetam IV 500 MG in SODIUM CHLORIDE 0.9% 100 ML IVPB SCH (09:41)
--- NOTE | 2021-09-04 10:32 | P.CRDCN ---
History of Present Illness History of present illness: HISTORY OF PRESENTING ILLNESS This is a pleasant 41-year-old female with a past medical history of chronic back pain and cannabis use. She does not follow with a senior java web developer. 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 She states yesterday while at work, she was walking to go to lunch and a co-worker noticed her not looking herself. She states she had acute onset lightheadedness, felt as if "she was not all there" and lost consciousness. She states that her coworker helped her sit in a chair. She was told that she was unconscious for only a few seconds. However patient continued to slowly become responsive and then lose consciousness again. EMS was called, she states that her blood pressure was normal, her blood sugar was normal. She states that another episode occurred in the emergency department. At that time she felt as if her whole body was shaking. And endorses an intense headache in the back of her head. She states that she almost lost control of her urine but became more responsive and didn't. She denies any chest pain, shortness of breath, palpitations, abdominal pain, nausea, vomiting, diaphoresis. She denies any weakness, numbness, tingling. She denies any biting of the tongue or loss of bowel or bladder. She denies any history of CAD, AR, stroke, diabetes, hypertension, dyslipidemia, seizures, arrhythmia. Family history includes her grandfather had an AR in his 30s and multiple stents/CABG. She current uses mar ijuana. Denies cigarette use. Occasional alcohol use. Denies any illicit drug use. DIAGNOSTICS EKG reveals sinus rhythm, heart rate 82, T wave inversion in lead III, no acute ischemia noted. Telemetry tracings indicate patient maintaining sinus mechanism with heart rates in the 80s/90s. No arrhythmia noted. Chest CT revealed no evidence of pulmonary embolism or acute thoracic process. Brain CT with no acute intracranial abnormality CT angiogram head and neck revealed no evidence dissection or significant stenosis. No evidence of high-grade stenosis or intracranial aneurysm Laboratory reviewed, CBC unremarkable, troponin negative, sodium 139, potassium 4.2, BUN 7.5, serum creatinine 0.8, UA negative, toxicology positive for opiates and marijuana Current home cardiac medications include [place], gabapentin, Flexeril REVIEW OF SYSTEMS At the time of my exam: CONSTITUTIONAL: Denies fever or chills. CARDIOVASCULAR: Denies chest pain, shortness of breath, orthopnea, PND or palpitations. RESPIRATORY: Denies cough. GASTROINTESTINAL: Denies abdominal pain, diarrhea, constipation, nausea or vomiting. MUSCULOSKELETAL: Denies myalgias. NEUROLOGIC: Denies numbness, tingling, Reports headache, Denies weakness. ENDOCRINE: Denies fatigue, weight change, polydipsia or polyurina. GENITOURINARY: Denies burning, hematuria or urgency with micturation. HEMATOLOGIC: Denies history of anemia or bleeding. PHYSICAL EXAMINATION Blood pressure 114/79, heart rate 94, afebrile, saturation 99% room air CONSTITUTIONAL: No apparent distress. HEENT: Head is normocephalic. Pupils are equal, round. Sclerae anicteric. Mucous membranes of the mouth are moist. No JVD. No carotid bruit. CHEST EXAMINATION: Lungs are clear to auscultation. No chest wall tenderness is noted on palpation or with deep breathing. HEART EXAMINATION: Regular rate and rhythm. S1, S2 heard. No murmurs, gallops or rub. ABDOMEN: Soft, nontender. Positive bowel sounds. EXTREMITIES: 2+ peripheral pulses, no lower extremity edema and no calf tenderness. NEUROLOGIC EXAMINATION: Patient is awake, alert and oriented x3. ASSESSMENT Syncopal episode Headache Chronic back pain Marijuana use PLAN Continue monitor on telemetry Obtain 2D echocardiogram and doppler study to assess cardiac structure and function. Neurology evaluation for possible seizure Check TSH Further recommendations based on clinical course Nurse practitioner note has been reviewed by physician. Signing provider agrees with the documented findings, assessment, and plan of care. Past Medical History Additional Past Medical History / Comment(s): kidney stones,kidney infections, back pain, L breast lump removed, abnormal pap smears, ABNORMAL MAMMOGRAM, History of Any Multi-Drug Resistant Organisms: None Reported Past Surgical History: No Surgical Hx Reported Additional Past Surgical History / Comment(s): RT OVARIAN CYSTECTOMY/removal of ovary and fallopian tube, left lumpectomy Past Anesthesia/Blood Transfusion Reactions: No Reported Reaction Past Psychological History: No Psychological Hx Reported Smoking Status: Never smoker Past Alcohol Use History: Occasional Additional Past Alcohol Use History / Comment(s): 09/01/21 last marijuana use Past Drug Use History: Marijuana - Past Family History Son(s) Family Medical History: No Reported History Additional Family Medical History / Comment(s): High functioning autism Mother Family Medical History: No Reported History Father Additional Family Medical History / Comment(s): pulmonary fibrosis, parkinsons Medications and Allergies Home Medications Medication Instructions Recorded Confirmed Type Cyclobenzaprine [Flexeril] 10 mg PO TID 12/07/15 09/03/21 History Gabapentin [Neurontin] 300 mg PO HS 10/05/16 09/03/21 History HYDROcodone/APAP 10-325MG [[place] 1 tab PO BID PRN 09/03/21 09/03/21 History 10-325] Levonorgestrel/Ethin.estradiol 1 tab PO DAILY 09/03/21 09/03/21 History [Levora-28 Tablet] Allergies Allergy/AdvReac Type Severity Reaction Status Date / Time lorazepam [From Ativan] Allergy Rash/Hives Verified 09/03/21 14:03 Physical Exam Vitals: Vital Signs Temp Pulse Pulse Resp BP BP Pulse Ox 09/04/21 02:03 97.5 F L 80 18 101/58 96 09/03/21 19:10 98.1 F 95 17 107/60 99 09/03/21 18:45 97.5 F L 74 18 106/71 100 09/03/21 17:00 94 17 128/81 100 09/03/21 16:00 98 16 126/81 100 09/03/21 15:10 103 H 16 125/82 100 09/03/21 15:00 105 H 18 138/90 99 09/03/21 14:00 102 H 18 138/91 100 09/03/21 13:40 108 H 34 H 144/100 100 09/03/21 13:30 129/86 09/03/21 13:20 129/86 09/03/21 13:10 91 129/86 09/03/21 13:00 85 123/90 98 09/03/21 12:50 90 123/90 09/03/21 12:40 132/86 09/03/21 12:37 132/86 100 09/03/21 12:30 98.3 F 85 16 123/90 99 Intake and Output 09/03/21 09/04/21 09/04/21 22:59 06:59 14:59 Other: # Voids 1 1 Weight 61.235 kg Results 09/04/21 04:00 09/04/21 04:00 Cardiac Enzymes 09/03/21 09/03/21 Range/Units 13:10 13:10 AST 30 (14-36) U/L Troponin I <0.012 (0.000-0.034) ng/mL Coagulation 09/03/21 Range/Units 13:10 PT 9.6 (9.0-12.0) sec APTT 22.3 (22.0-30.0) sec CBC 09/03/21 Range/Units 13:10 WBC 6.9 (3.8-10.6) k/uL RBC 4.65 (3.80-5.40) m/uL Hgb 14.2 (11.4-16.0) gm/dL Hct 43.1 (34.0-46.0) % Plt Count 193 (150-450) k/uL Comprehensive Metabolic Panel 09/03/21 Range/Units 13:10 Sodium 141 (137-145) mmol/L Potassium 3.9 (3.5-5.1) mmol/L Chloride 109 H (98-107) mmol/L Carbon Dioxide 25 (22-30) mmol/L BUN 10 (7-17) mg/dL Creatinine 0.79 (0.52-1.04) mg/dL Glucose 78 (74-99) mg/dL Calcium 9.4 (8.4-10.2) mg/dL AST 30 (14-36) U/L ALT 21 (4-34) U/L Alkaline Phosphatase 60 (38-126) U/L Total Protein 7.0 (6.3-8.2) g/dL Albumin 4.3 (3.5-5.0) g/dL Current Medications Generic Name Dose Route Start Last Admin Trade Name Freq PRN Reason Stop Dose Admin Hydrocodone Bitart/Acetaminophen 1 each 09/03/21 14:34 Hydrocodone/Apap 10-325mg 1 Each Tab PO BID PRN Pain Gabapentin 300 mg 09/03/21 21:00 09/03/21 20:01 Gabapentin 300 Mg Cap PO 300 mg HS SEBLE Administration Heparin Sodium (Porcine) 5,000 unit 09/04/21 00:00 09/03/21 22:54 Heparin Sodium,Porcine/Pf 5,000 Unit/0.5 Ml Syringe SQ Not Given Q8HR SEBLE Levetiracetam 500 mg/ Sodium 105 mls @ 400 mls/hr 09/03/21 21:00 09/03/21 20:31 Chloride IVPB 400 mls/hr Q12HR SEBLE Administration Naloxone HCl 0.2 mg 09/03/21 14:31 Naloxone 0.4 Mg/Ml 1 Ml Vial IV Q2M PRN Opioid Reversal Ondansetron HCl 4 mg 09/03/21 14:36 Ondansetron 4 Mg/2 Ml Vial IVP Q8HR PRN Nausea And Vomiting Intake and Output 09/03/21 09/04/21 09/04/21 22:59 06:59 14:59 Other: # Voids 1 1 Weight 61.235 kg 09/03/21 13:10 09/03/21 13:10
--- NOTE | 2021-09-04 12:30 | CA ---
Transthoracic Echo Report Name: Izabela Moulton Age: 41 Gender: F : 1980 Exam Date: 09/04/2021 07:35 Exam Location: [facility] Ht (in): 65 Wt (lb): 135 Ordering Physician: Simon Espinoza Attending/Referring Phys: Felt Checker Sirisha Preston RDCS Procedure CPT: Indications: syncopal episode Cardiac Hx: Technical Quality: Good Contrast 1: Total Dose (mL): Contrast 2: Total Dose (mL): MEASUREMENTS (Male / Female) Normal Values 2D ECHO LV Diastolic Diameter PLAX 4.1 cm 4.2 - 5.9 / 3.9 - 5.3 cm LV Systolic Diameter PLAX 2.8 cm IVS Diastolic Thickness 1.0 cm 0.6 - 1.0 / 0.6 - 0.9 cm LVPW Diastolic Thickness 1.1 cm 0.6 - 1.0 / 0.6 - 0.9 cm LV Relative Wall Thickness 0.5 RV Internal Dim ED PLAX 2.7 cm LA Systolic Diameter LX 3.1 cm 3.0 - 4.0 / 2.7 - 3.8 cm LA Volume 42.9 cm??? 18 - 58 / 22 - 52 cm??? M-MODE Aortic Root Diameter MM 2.9 cm MV E Point Septal Separation 0.7 cm AV Cusp Separation MM 1.9 cm DOPPLER AV Peak Velocity 106.0 cm/s AV Peak Gradient 4.5 mmHg MV Area PHT 4.1 cm??? Mitral E Point Velocity 81.0 cm/s Mitral A Point Velocity 66.4 cm/s Mitral E to A Ratio 1.2 MV Deceleration Time 183.6 ms MV E' Velocity 12.9 cm/s Mitral E to MV E' Ratio 6.3 TR Peak Velocity 177.3 cm/s TR Peak Gradient 12.6 mmHg FINDINGS Left Ventricle Left ventricular ejection fraction is estimated at 55-60 %. Left ventricular cavity size normal. Left ventricular wall thickness normal. Right Ventricle Normal right ventricular size and function. Right ventricular systolic pressure within normal limits. Right Atrium Normal right atrial size. Left Atrium Normal left atrial size. No evidence for an atrial septal defect. Mitral Valve Structurally normal mitral valve. No mitral stenosis, regurgitation or prolapse. Trace mitral regurgitation Aortic Valve Trileaflet aortic valve. No aortic valve stenosis or regurgitation. Tricuspid Valve Mild tricuspid regurgitation.structurally normal tricuspid valve. Pulmonic Valve Structurally normal pulmonic valve. Pericardium Normal pericardium. No pericardial effusion. Aorta Normal size aortic root and proximal ascending aorta. CONCLUSIONS 1. Normal size and systolic function 2. Trace mitral was mild tricuspid regurgitation and no evidence of pulmonary hypertension 3. No pericardial effusion Previewed by: Dr. Alyssa Ha MD (Electronically Signed) Final Date: 04 September 2021 12:29
--- NOTE | 2021-09-04 14:29 | MR ---
EXAMINATION TYPE: MR brain/cspine wo/w DATE OF EXAM: 09/04/2021 COMPARISON: CT brain September 03, 2021 HISTORY: Numbness, weakness, vomiting, headache TECHNIQUE: Multiplanar, multisequence images of the brain and brainstem and cervical spine are off performed wit hout and with IV contrast, utilizing 6 mL intravenous Gadavist . FINDINGS: Diffusion weighted images demonstrate no evidence of a recent infarct or other diffusion ab normality. There is no extra-axial fluid collection or significant white matter signal abnormality. The ventricular system and cisternal spaces are normal in size and appearance. The brain volume is age appropriate. Midline structures demonstrate normal morphology. The craniocervical junction appears within normal limits. Post contrast images demonstrate no abnormal enhancement. The dural venous sinuses appear pa tent. The visualized sinuses are clear and the globes are intact. IMPRESSION: Unremarkable study. C-SPINE: Evaluation is suboptimal as there is motion artifact degradation. FINDINGS: Sagittal images of the cervical spine show the craniocervical junction to appear within nor mal limits. The cervical and upper thoracic spinal cord is normal in course, caliber, and signal. V ertebral alignment is anatomic. The vertebral body and intravertebral disk heights are normal. The bone marrow signal intensity is within normal limits. No abnormal postcontrast enhancement is seen. Axial images are suboptimal/nondiagnostic as there is too much motion artifact. Tiny posterior disc h erniation C5-C6 and C6-C7 level noted on sagittal image 9 mildly effaces the anterior thecal sac. IMPRESSION: Suboptimal study. Tiny disc herniations C5-C6 and C6-C7 levels noted.
[2021-09-04] MEDS ORDERED: PROCHLORPERAZINE INJ 10 MG/2 ML VIAL IVP STA (15:52)
[2021-09-04] MEDS ORDERED: diphenhydrAMINE 50 MG/ML 1 ML VIAL IVP STA (15:52)
[2021-09-04] MEDS ORDERED: KETOROLAC 15 MG/ML 1 ML VIAL IVP STA (15:52)
[2021-09-04] MEDS: ACETAMINOPHEN TAB 325 MG TAB PO PRN ×2 (16:41→21:44)
--- NOTE | 2021-09-04 18:41 | P.PN ---
Subjective Progress Note Date: 09/04/21 History of Presenting Illness: Patient is a very pleasant 41-year-old female with a past medical history of chronic back pain and cannabis use. She presented to the emergency department with a chief complaint of syncopal episode. Patient reported while at work she began to feel lightheaded and blacked out. Patient reports she was not completely unresponsive as she could hear people's voices and felt as though her body is vibrating all over. She underwent full evaluation in the emergency department. CBC, CMP, and coags all unremarkable. Troponin less than 0.012. Lactic acid normal findings at 1.0. Urinalysis negative for infection. Urine drug screen positive for opiates and marijuana. EKG showing normal sinus rhythm 82 bpm with no noted T-wave or ST abnormalities. CT head unremarkable. CTA head and neck also negative for acute findings. CT chest also negative for acute PE. Urine hCG was negative for . Patient reported prior to this reported episode she has had no recent illnesses or infection, fevers, chills, diaphoresis, headaches, chest pain, palpitations, shortness of breath, cough or congestion, abdominal pain, nausea, vomiting, or experiencing any numbness/tingling/weakness in her extremities. Patient reports during this syncopal like episode that she did not bite her tongue or experiencing any involuntary loss of bowel or bladder. Patient has been admitted under our services with consultation to cardiology and neurology. Patient reports that the episodes of feeling as though her body is vibrating continue. Physical exam: Pt seen and evaluated at bedside this morning. She continues to report episodes of seizure like activity. Believed to be psuedoseizures. Pt also reports that she can no longer feel her bilateral lower extremities and right arm, but does pull away to painful stimuli when assessed. Echocardiogram revealing normal EF 55-60% with trace mitral and tricuspid regurgitation. Patient scheduled to undergo MRI later today. Psychiatry to be consulted to rule out conversion disorder. Vital signs reviewed and stable. General: Nontoxic, no distress and appears stated age. Derm: Skin warm and dry, normal coloration for ethnicity. Head: Atraumatic, normocephalic and symmetric. Eyes: EOMs intact, no lid lag, and anicteric sclera Mouth: no lip lesions, mucus membranes moist Cardiovascular: regular rate and rhythm with normal S1S2, no murmur, positive posterior tibial pulses bilaterally, and cap refill < 2 seconds. Lungs: Respirations even, regular, and unlabored on room air. Lungs CTA bilaterally, no rhonchi, no rales, no wheezing, and no accessory muscle usage. Abdominal: soft, nontender to palpation, no guarding, no appreciable organomegaly Ext: ROM intact. No gross muscle atrophy, no edema, no contractures Neuro: Speech clear, face symmetrical and CN II-XII grossly intact with no noted focal neuro deficits Psych: Alert and oriented to person, place, time, and situation. Appropriate and pleasant affect. 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 -Echocardiogram to be completed. -Neurology recommending MRI and EEG at this time -Telemetry monitoring -Seizure precautions, fall precautions, and aspiration precautions in place -Neuro checks Chronic back pain -Continue Neurontin 300 mg nightly and hydrocodone 10/325 mg tablets, we will hold Flexeril at this time. CODE STATUS: Full code DVT prophylaxis: Heparin Discussed with: Patient, patient's family members at bedside and RN Anticipated discharge date: Tomorrow Anticipated discharge place: Home A total of 30 minutes was spent on the care of this complex patient more than 50% of the time was spent in counseling and care coordination. I reviewed the documentation as provided by the EDU above, who is the original author of this note. I agree with the documented assessment and plan, with the following changes: none Objective - Vital Signs Vital signs: Vital Signs Temp 97.8 F 09/04/21 07:55 Pulse 94 09/04/21 07:55 Resp 18 09/04/21 07:55 BP 114/79 09/04/21 07:55 Pulse Ox 99 09/04/21 07:55 FiO2 Intake & Output 09/03/21 09/04/21 09/04/21 18:59 06:59 18:59 Weight 61.235 kg 61.235 kg Other: # Voids 1 - Labs CBC & Chem 7: 09/04/21 04:00 09/04/21 04:00 Labs: Abnormal Lab Results - Last 24 Hours (Table) 07/14/22 07/14/22 Range/Units 13:10 13:10 Chloride 109 H (98-107) mmol/L Urine Opiates Screen Detected H (NotDetected) U Marijuana (THC) Screen Detected H (NotDetected)
--- NOTE | 2021-09-04 18:50 | EEG ---
ELECTROENCEPHALOGRAM REPORT DATE OF SERVICE: 09/04/2021 PREAMBLE: This is a 41-year-old female with seizure-type spells. This study is performed to evaluate for epileptiform activity. EEG FINDINGS: This is a 21-channel digital EEG recording with video competent, utilizing 10/20 international system with referential and bipolar montages. Background consists of well developed, well regulated, moderate voltage activity in 10 hertz alpha. Background is posterior-dominant and reactive to eye opening and closing. Moderate amount of low-voltage fast frequency beta was also seen. Photic stimulation was not performed. Mild drowsiness was seen with the appearance of bilaterally symmetric theta frequency rhythm. Deeper stages of sleep were not seen. No focal or generalized epileptiform activity was seen. EKG channel showed no obvious arrhythmia. IMPRESSION: This is a normal awake and drowsy EEG. No focal, lateralized or epileptiform activity was seen. MMODL / IJN: [id number] /
[2021-09-04] MEDS: GABAPENTIN 300 MG CAP PO SCH (20:49)
[2021-09-04] MEDS ORDERED: CYCLOBENZAPRINE 10 MG TAB PO SCH (21:00)
[2021-09-04] MEDS ORDERED: BUTALB/APAP/CAFF 50-325-40MG TAB PO PRN (22:03)
--- NOTE | 2021-09-04 22:09 | P.PN ---
Subjective Progress Note Date: 09/04/21 Patient was seen for a follow-up. Patient was seen twice, once before she went for testing and then when she returned back from testing. Patient has just taken a shower, and was walking very stable from bathroom to her bed. An aide was also present. She was able to get into the bed without any issues, using both arms to lift herself up. Patient states her muscles want to do what was doing yesterday but not as bad. She is doing well with Keppra. States when she is walking, not steady, although she appeared very steady for me. She can feel the pressure but not the sensations in her legs and right arm. Patient's mother was also present today during the second encounter. She was concerned by patient is having numbness of her legs and right arm. Patient complaining of headache 11 on a scale of 1-10. Patient cannot sleep, eat because of the headache. She otherwise appears comfortable. He did not complain of headache with the earlier encounter, but now complaining of severe headache. Patient denies any history of migraines. Objective - Vital Signs Vital signs: Vital Signs Temp 97.8 F 09/04/21 07:55 Pulse 94 09/04/21 07:55 Resp 18 09/04/21 07:55 BP 114/79 09/04/21 07:55 Pulse Ox 99 09/04/21 07:55 FiO2 Intake & Output 09/03/21 09/04/21 09/04/21 18:59 06:59 18:59 Intake Total 118 Balance 118 Weight 61.235 kg 61.235 kg Intake: Oral 118 Other: # Voids 1 - Exam Patient's mental status, speech and language functions are normal. Cranial nerves are normal. Muscle strength is almost normal in the arms and legs, with some giveaway weakness, inconsistent response at times more so on the right. Reflexes are symmetric. Her gait appeared normal what she was going from bathroom to her bed. 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 * Chest pain, unclear cause. * Marijuana use. Plan: * EEG was performed today, which is normal awake and drowsy. No epileptiform activity was seen. No seizure type spell was captured during the event. * MRI of the brain and cervical spine with and without contrast are normal. No mass lesion, no demyelination. MRI of the cervical spine showed tiny disc herniation C5 6 and C6 7 levels. I personally reviewed MRI and agree with the findings. * Patient has not had any more seizure type spells since morning. We will decrease Keppra down to 250 mg twice a day. * All workup is negative. Patient continues to have symptoms of numbness and weakness. Suggest psychiatry consultation for possible conversion disorder. * Patient's mother concerned about discharge. She believes patient cannot walk and can fall. We will have PT OT evaluate her gait. If PT OT and available over the weekend, then may have nurses evaluated the patient for gait for safety. * Keppra can be discontinued, if psychiatry concurs with the above diagnosis. * Patient also seen by scale mechanic for chest pain. 2-D echo revealed normal size and systolic function. Trace MR and mild TR. EF is normal 55-60%. Left atrial size normal. * For cephalgia, we will start Fioricet as needed. I reviewed patient's CTA of head and neck and MRI of the brain with Dr. Hoover, and he noticed patency of the dural venous sinuses. No evidence of sinus thrombosis. I did inform patient about cautioned regarding control pills and her above symptomatology. She says that she has been on control pills because of previous ovarian cyst that ruptured. * TSH is normal 1.34. We will check B12, folate because of numbness. * Dr. Sandoval Will resume neurology service over the weekend.
[2021-09-04] MEDS: levETIRAcetam 250 MG TAB PO SCH (23:00)
[2021-09-05 02:36] VITALS: TEMP 98.3
[2021-09-05] MEDS: ACETAMINOPHEN TAB 325 MG TAB PO PRN ×2 (04:36→10:01)
[2021-09-05] MEDS: levETIRAcetam 250 MG TAB PO SCH (07:28)
[2021-09-05] MEDS: HEPARIN SODIUM,PORCINE/PF 5,000 UNIT/0.5 ML SYRINGE SQ SCH (07:28)
[2021-09-05 07:33] VITALS: RESP 16
[2021-09-05 13:41] VITALS: BP 115/76; PULSE 97
--- NOTE | 2021-09-05 14:32 | P.PN ---
Subjective Progress Note Date: 09/05/21 This is Aaron Mendoza NP, I'm dictating on behalf of Dr. Rubalcava's H&P and A&P. Patient was interviewed and examined. Patient is a pleasant 41-year-old female who initially presented to the hospital with multiple syncopal episodes while at work. Patient reports that she feels better today. She's currently denying chest pain and shortness of breath. Patient had an echocardiogram completed which does not demonstrate any acute or chronic issues and is relatively normal. Patient's blood pressure and heart rate are within normal limits. Patient states that she was started on Keppra yesterday and believes that she feels better because of this. EKG demonstrates normal sinus rhythm. Lab work is benign. GENERAL: Well-appearing, well-nourished and in no acute distress. NECK: Supple without JVD or thyromegaly. LUNGS: Breath sounds clear to auscultation bilaterally. Respiration equal and unlabored. No wheezes, rales or rhonchi. HEART: Regular rate and rhythm without murmurs, rubs or gallops. S1 and S2 heard. EXTREMITIES: Normal range of motion, no edema. No clubbing or cyanosis. Peripheral pulses intact and strong. VITALS: Temp 98.3, pulse 90, respirations 16, blood pressure 92/54, O2 saturation 97% on room air TELEMETRY: Normal sinus rhythm LABS: White count 6.35, hematoma 12.9, platelets 177, sodium 139, potassium 4.2, B1 7.5, creatinine 0.8, magnesium 2.0, troponin less than 0.012, TSH 1.340 IMPRESSION: 1. Syncope versus seizure PLAN: From a cardiac standpoint it doesn't appear that the patient's symptomatology is a vasovagal in origin, there is no evidence of bradycardia, and overall does not appear to be cardiac in origin Troponin negative EKG demonstrates normal sinus rhythm with no abnormalities No orthostasis noted From a cardiac standpoint patient can be discharged. Patient should follow-up as an outpatient. Thank you for allowing us to participate in the care of this patient. Further recommendations are needed please do not hesitate to reconsult. Objective - Vital Signs Vital signs: Vital Signs Temp 98.3 F 09/05/21 13:40 Pulse 97 09/05/21 13:40 Resp 16 09/05/21 13:40 BP 115/76 09/05/21 13:40 Pulse Ox 98 09/05/21 13:40 FiO2 Intake & Output 09/04/21 09/05/21 09/05/21 18:59 06:59 18:59 Intake Total 236 118 Balance 236 118 Intake: Oral 236 118 Other: Voiding Method Toilet Toilet Bedside Commode Bedside Commode # Voids 2 1 3 - Labs CBC & Chem 7: 09/04/21 04:00 09/04/21 04:00
--- NOTE | 2021-09-05 15:11 | P.DS ---
Providers Date of admission: 09/03/21 14:41 Expected date of discharge: 09/05/21 Attending physician: Sheeba Cook DO Consults: 09/03/21 14:36 Consult Physician Routine Consulting Provider: Anders Zamudio Consult Reason/Comments: syncope vs possible seizure vs pseudoseizure Do you want consulting provider notified?: Yes 09/03/21 18:19 Consult Physician Routine Consulting Provider: Mat Balderrama Consult Reason/Comments: Syncopal episode Do you want consulting provider notified?: Yes 09/04/21 15:49 Consult Physician Routine Consulting Provider: Aniceto Duffy Consult Reason/Comments: rule out conversion disorder Do you want consulting provider notified?: Yes Primary care physician: Stated None Hospital Course: Discharge Diagnosis: Seizure-type spells, pseudoseizures. Conversion disorder Anxiety Increased life stressors Chronic back pain Hospital Course: Patient is a very pleasant 41-year-old female with a past medical history of chronic back pain and cannabis use. She presented to the emergency department with a chief complaint of syncopal episode. Patient reported while at work she began to feel lightheaded and blacked out. Patient reports she was not completely unresponsive as she could hear people's voices and felt as though her body is vibrating all over. She underwent full evaluation in the emergency department. CBC, CMP, and coags all unremarkable. Troponin less than 0.012. Lactic acid normal findings at 1.0. Urinalysis negative for infection. Urine drug screen positive for opiates and marijuana. EKG showing normal sinus rhythm 82 bpm with no noted T-wave or ST abnormalities. CT head unremarkable. CTA head and neck also negative for acute findings. CT chest also negative for acute PE. Urine hCG was negative for . Patient reported prior to this reported episode she has had no recent illnesses or infection, fevers, chills, diaphoresis, headaches, chest pain, palpitations, shortness of breath, cough or congestion, abdominal pain, nausea, vomiting, or experiencing any numbness/tingling/weakness in her extremities. Patient reports during this syncopal like episode that she did not bite her tongue or experiencing any involuntary loss of bowel or bladder. Patient has been admitted under our services with consultation to cardiology and neurology. Patient reports that the episodes of feeling as though her body is continuing to vibrating. Patient underwent full cardiac and neurological examination. She was started on Keppra and concerns of possible seizure-like episodes. Echocardiogram was completed showing normal EF 55-60% with no significant valvular or structural abnormalities. MRI brain and cervical spine were completed. MRI brain unremarkable study. MRI cervical spine revealing tiny disc herniation C5 through C6 and C6 through C7. EEG also normal findings. This was discussed with patient. Patient then reporting numbness in right arm and bilateral lower extremities and inability to ambulate requiring 2 nurses for assistance to get out of bed. Patient reported numbness to bilateral lower extremities but did withdraw to any painful stimuli. Concerns for underlying conversion disorder. Discussed with neurology whom is in agreement and consult was then placed to psychiatry. Patient hospitalized overnight. This was discussed with patient concerns of possible conversion disorder resulting from increased stress in life and concerns that stress is being manifested to physical/psychological actions. Patient also in agreement that this is a strong possibility as she reports stress with home and job and states does have anxiety but currently denies having any depression, suicidal ideations, or homicidal ideations. Patient was evaluated by psychiatry and was diagnosed with conversion disorder at this time. Patient now ambulating in room without any difficulties and reports a sensation of all previously reported numbness and seizure-like activity. Patient declining antidepressant medication at this time and being given community health resources for follow-up with therapist/counselor/psychiatrist upon discharge. In addition patient to follow-up with PCP in 1-2 days and orthospine specialist as needed secondary to incidental findings of tiny cervical disc herniation. Physical exam: Vital signs reviewed and stable. General: Nontoxic, no distress and appears stated age. Derm: Skin warm and dry, normal coloration for ethnicity. Head: Atraumatic, normocephalic and symmetric. Eyes: EOMs intact, no lid lag, and anicteric sclera Mouth: no lip lesions, mucus membranes moist Cardiovascular: regular rate and rhythm with normal S1S2, no murmur, positive posterior tibial pulses bilaterally, and cap refill < 2 seconds. Lungs: Respirations even, regular, and unlabored on room air. Lungs CTA bilaterally, no rhonchi, no rales, no wheezing, and no accessory muscle usage. Abdominal: soft, nontender to palpation, no guarding, no appreciable organomegaly Ext: ROM intact. No gross muscle atrophy, no edema, no contractures Neuro: Speech clear, face symmetrical and CN II-XII grossly intact with no noted focal neuro deficits Psych: Alert and oriented to person, place, time, and situation. Appropriate and pleasant affect. A total of 38 minutes of time were spent preparing this complex discharge summary. Pt was discharged on 09/05/21 at 2:53 PM. Patient Condition at Discharge: Stable Plan - Discharge Summary New Discharge Prescriptions: Continue Gabapentin [Neurontin] 300 mg PO HS HYDROcodone/APAP 10-325MG [[place] 10-325] 1 tab PO BID PRN PRN Reason: Pain Levonorgestrel/Ethin.estradiol [Levora-28 Tablet] 1 tab PO DAILY Discontinued Cyclobenzaprine [Flexeril] 10 mg PO TID Discharge Medication List Gabapentin [Neurontin] 300 mg PO HS 10/05/16 [History] HYDROcodone/APAP 10-325MG [[place] 10-325] 1 tab PO BID PRN 09/03/21 [History] Levonorgestrel/Ethin.estradiol [Levora-28 Tablet] 1 tab PO DAILY 09/03/21 [History] Follow up Appointment(s)/Referral(s): Vince Jack DO [Doctor of Osteopathic Medicine] - 1 Week (As needed for neck pain/discomfort secondary to tiny cervical disc herniation C5 through C6 and C6 through C7. ) Nikita England MD [REFERRING] - 1-2 Days Patient Instructions/Handouts: Conversion Disorder (DC), Anxiety (GEN), Stress (DC) Activity/Diet/Wound Care/Special Instructions: Activity: As tolerated. Take breaks as needed. Diet: Heart healthy and carb consistent diet. Avoid salts, or foods with hidden salts such as canned or boxed foods and frozen dinners. Extra salt makes your heart work harder and traps the fluid in your body for longer. Special Instructions: Take all of your medications as directed and remember to keep all of your doctor's appointments and follow-up as needed. Thank you for allowing us to participate in your care, it was truly a pleasure having you for our patient!!! You are being discharged home with community resources on outpatient counseling and services available to you, it is very important to follow up with a counselor/therapist/psychiatrist for continued close monitoring. Patient informed of [place] state law stating no driving until free from loss of consciousness for 6 months. Patient also instructed to avoid climbing ladders, operating dangerous or heavy machinery or unsupervised swimming until free from having any episodes of loss of consciousness for at least 6 months. Discharge/Stand Alone Forms: Community Resources, Outpatient Counseling, Personal Nursing Teacher Discharge Disposition: HOME SELF-CARE
--- NOTE | 2021-09-05 15:18 | P.CN ---
Psychiatric Consult - . Consult date: 09/05/21 Consult:: 09/05/21 13:59 IDENTIFYING DATA: This patient is a 41-year-old female who presented with syncopal-type episodes. REASON FOR REFERRAL: Psychiatry was consulted for "conversion disorder". HISTORY OF PRESENT ILLNESS: The patient presented to the hospital with multiple complaints of lightheaded, head pressure, body vibrating, burning back of head, head pounding, numbness in right arm and both legs, had several syncopal-type episodes and/or nonepileptic spells. Patient was admitted for observation and full workup was completed which was unremarkable. I evaluated patient this afternoon. She was found sitting up in bed with her mother at bedside. They are both pleasant, calm and cooperative. Patient was assessed with her mother in the room per her preference. Patient reports feeling "much better", and denies depressed mood. She reports some difficulty falling asleep, staying asleep and ship worker awakenings around 4 AM and not being able to return to sleep. She otherwise reports good energy, concentration, and appetite. She reports a history of depression when getting about 13 years ago and possibly when her grandmother in 2019, but currently denies depression. She does endorse some anxiety, sometimes feeling restless and on edge, sometimes staying awake thinking, and muscle tension in her neck and back. She denies currently feeling anxious or any recent panic attacks. At this time, patient denies any suicidal or homicidal ideations, intent or plan. Patient denies any auditory or visual hallucinations, and denies any paranoia or delusions. Patients admits to using CBD gummies to help her relax after work. 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 She reports a good home life, but has been busy looking for a house which she has recently decided to not purchase this year due to inflation. Her son is also graduated from high school and she is planning a graduation green party. PAST PSYCHIATRIC HISTORY: Patient has a self-reported history of some anxiety and depression in the past. She has never seen a psychiatrist or had mental health treatment or been diagnosed. Patient denies being on any psychiatric medications, except for gabapentin which she is currently taking for hot flashes. Patient denies any previous psychiatric hospitalizations. Patient denies any psychiatric outpatient follow-up. Patient denies any history of suicide attempts in the past. PAST MEDICAL HISTORY: Chronic back pain ALLERGIES: as per EMR. CHEMICAL DEPENDENCY HISTORY: She reports using [id number] CBD coming days. She does not smoke marijuana. She denies using alcohol or other illicit drugs. FAMILY PSYCHIATRIC/SUBSTANCE USE HISTORY: Possibly a sister with depression. SOCIAL HISTORY: She is . Lives in her own home with 2 children. Works a as a cardiology endoscope technician. Reports good family support, close with her mother. MENTAL STATUS EXAM: General Appearance: Patient appears to be stated age is alert, dressed in hospital gown with good hygiene and good eye contact. Orientation: Alert and oriented to person, place, time and situation. pleasant, and cooperative. Behavior: Patient is calmly sitting up in bed without any agitated behavior. She is pleasant, cooperative, conversational. Speech: Patient's speech is fluent and nonpressured. Mood/Affect: Patient reports their mood is "much better", affect is congruent and broad. Suicidality/Homicidality: Patient denies having any suicidal or homicidal ideation intent or plan. Perceptions: Patient denies any visual hallucinations and denies any auditory hallucinations. Though content/process: There is no evidence of any delusional thought content and thought process is linear and goal-directed. Memory and concentration: Grossly intact for the purposes of this session. Can spell "WORLD" backwards. Judgment and insight: Good IMPRESSIONS: Unspecified anxiety disorder Unspecified depressive disorder Concern for conversion disorder PLAN: -At this time patient DOES NOT meet criteria for inpatient psychiatric admission. -Would recommend the following medication changes/additions: I have discussed the addition of an SSRI to address underlying anxiety and depression, but patient declines at this time due to concerns over possible side effects and doesn't like to take too many medications. Patient does agree to follow-up with a therapist on an outpatient basis. Recommend weekly CBT to address stressors. Recommend close follow-up with PCP and link with outpatient psychiatrist. -delivery sales worker to provide patient with outpatient mental health/psychiatry resources for appropriate follow up upon discharge -Communicated plan to patient's nurse practitioner. -Psychiatry will sign off at this time -Please contact with any questions. 09/05/21 14:59
--- NOTE | 2021-09-05 16:28 | P.PN ---
Subjective Progress Note Date: 09/05/21 The patient is seen in neurologic follow-up on September 05, 2021, via telemedicine. Chart and imaging are reviewed. The patient reports feeling better today. She says she was able to walk better. She says she feels as if her right side(arm and leg) is still weak however she was able to walk without assistance. She denies further episodes of loss of consciousness. Objective - Vital Signs Vital signs: Vital Signs Temp 98.3 F 09/05/21 07:00 Pulse 90 09/05/21 07:00 Resp 16 09/05/21 07:00 BP 92/54 09/05/21 07:00 Pulse Ox 97 09/05/21 07:00 FiO2 Intake & Output 09/04/21 09/05/21 09/05/21 18:59 06:59 18:59 Intake Total 236 118 Balance 236 118 Intake: Oral 236 118 Other: Voiding Method Toilet Toilet Bedside Commode Bedside Commode # Voids 2 1 - Exam Gen.: The patient is reclining in the bed. She is well-nourished, well-developed and in no acute distress. HEENT: Head is atraumatic, normocephalic. Fundus not visualized. There is no scleral icterus. Mucous membranes are moist. Neurological examination Mental status: The patient is awake, alert and oriented 3. Her speech is clear. There is no dysarthria or aphasia. Cranial nerves: He was are equal, round and reactive to light. Visual chavarria are full to confrontation. Extraocular movements are intact. There is no nystagmus. She'll sensations intact. There is no facial asymmetry. Hearing is grossly intact. Uvula and palate are midline. Shoulder shrug is symmetric. Tongue protrudes midline. Motor: Left upper and lower extremity strength is 5/5. Right sided strength is inconsistent. Coordination: Finger to nose and [id number] testing are intact. Rapid alternating movements are intact. There is no dysdiadochokinesia. Deep tendon reflexes: 2+/4+ throughout. Gait: Not assessed - Labs CBC & Chem 7: 09/04/21 04:00 09/04/21 04:00 Labs: Abnormal Lab Results - Last 24 Hours (Table) 09/04/21 Range/Units 04:00 BUN 7.5 L (9.0-27.0) mg/dL BUN/Creatinine Ratio 9.80 L (12.00-20.00) Ratio Calcium 8.5 L (8.7-10.3) mg/dL Assessment and Plan Assessment: 1. 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 MRI negative for acute intracranial mass, hemorrhage or abnormality 3. EEG negative for seizure activity Plan: 1. Agree with discontinuation of Keppra 2. Appreciate psychiatry consultation 3. Agree with recommendations for outpatient psychological services regarding stress and anxiety Time with Patient: Less than 30 (spent 20 minutes with patient via telemedicine)
== END 2021-09-05 15:43 | disposition home or self-care (01) ==
LOC: EC 12:25 → 6NMEDSUR 14:41
PROVIDERS: ADMIT Internal Medicine; ATTEND Internal Medicine
DX: R56.9 Unspecified convulsions (principal); F44.9 Dissociative and conversion disorder, unspecified; F41.9 Anxiety disorder, unspecified; Z63.8 Other specified problems related to primary support group; Z56.3 Stressful work schedule; R55 Syncope and collapse; G89.29 Other chronic pain; M54.9 Dorsalgia, unspecified; I07.1 Rheumatic tricuspid insufficiency; F32.A Depression, unspecified; R20.0 Anesthesia of skin; R51.9 Headache, unspecified; R07.9 Chest pain, unspecified; R92.2 Inconclusive mammogram; R25.2 Cramp and spasm; Z71.9 Counseling, unspecified; Z87.442 Personal history of urinary calculi; Z88.8 Allergy status to other drugs, medicaments and biological substances; Z79.899 Other long term (current) drug therapy; Z79.3 Long term (current) use of hormonal contraceptives; Z81.8 Family history of other mental and behavioral disorders; Z82.0 Family history of epilepsy and other diseases of the nervous system; Z83.2 Family history of diseases of the blood and blood-forming organs and certain disorders involving the immune mechanism; Z82.49 Family history of ischemic heart disease and other diseases of the circulatory system
CPT/HCPCS: 96376; 96374; 96375 ×2; 96361; 99285; 36415; 95816; 93005; 93306; 80053; 80048; 84443; 83605; 83735; 84484; 85025 ×2; 85610; 85730; 81003; 84703; 80306; 70496; 70450; 70498; 71275; 70553; 72156; G0378 ×3; G0480; J1200 ×2; J0780; J2405 ×2; J1953 ×2; Q9967; A9585; 80320; 82607; 82746

== ENCOUNTER → 2022-08-20 | Outpatient (CLI) | payer BC, OTHER ==
--- NOTE | 2022-08-22 14:25 | XR ---
EXAMINATION TYPE: XR lumbosacral spine min 4V DATE OF EXAM: 08/20/2022 COMPARISON: None HISTORY: Low back pain TECHNIQUE: 5 view lumbar spine FINDINGS: There 5 lumbar-type vertebral bodies. Pedicles are intact. Vertebral body heights are prese rved. Disc heights appear preserved. Facets appear normal. No spondylolysis lytic defects are evident . There is mild side bending towards the left. Follow-up MRI can be performed as clinically indicated IMPRESSION: 1. Mild scoliosis.
--- NOTE | 2022-08-22 14:35 | XR ---
EXAMINATION TYPE: XR thoracic spine 2V DATE OF EXAM: 08/20/2022 COMPARISON: None HISTORY: Chronic lower back pain TECHNIQUE: 3 view thoracic spine. FINDINGS: There are 12 thoracic type vertebral bodies. Pedicles are intact. Subtle scoliosis within t he upper thoracic region. Vertebral body heights are preserved. Disc heights appear preserved. IMPRESSION: 1. Subtle thoracic scoliosis
== END | disposition home or self-care (01) ==
LOC: RADXRMAIN 15:21
PROVIDERS: ATTEND Physical Medicine & Rehabilitation
DX: M41.84 Other forms of scoliosis, thoracic region (principal); M41.56 Other secondary scoliosis, lumbar region; M54.50 Low back pain, unspecified; G89.29 Other chronic pain
CPT/HCPCS: 72070; 72110

== ENCOUNTER → 2022-10-15 | Outpatient (CLI) | payer OTHER ==
[2022-10-16 01:47] LABS: Basophils # (A) 0.05 X 10*3/uL (0.00-0.10); Basophils % (A) 0.7 %; Eosinophils # (A) 0.06 X 10*3/uL (0.04-0.35); Eosinophils % (A) 0.8 %; HCT 42.6 % (37.2-46.3); Lymphocytes # (A) 2.34 X 10*3/uL (0.90-5.00); Lymphocytes % (A) 30.8 %; MCH 31.3 pg (27.0-32.0); MCHC 32.9 d/dL (32.0-37.0); MCV 95.3 FL (80.0-97.0); Mean Platelet Volume 11.7 FL (9.5-12.2); Monocytes # (A) 0.52 X 10*3/uL (0.20-1.00); Monocytes % (A) 6.8 %; NRBC Per 100 WBC 0 X 10*3/uL (0.00-0.01); Neutrophils # (A) 4.61 X 10*3/uL (1.80-7.70); Neutrophils % (A) 60.6 %; Platelet Count 202 X 10*3/uL (140-440); RBC 4.47 X 10*6/uL (4.10-5.20); RDW 12.7 % (11.5-14.5)
[2022-10-16 02:13] LABS: ALT 24 U/L (8-44); AST 24 U/L (13-35); Albumin 4.8 d/dL (3.8-4.9); Albumin/Globulin Ratio 1.92 Ratio (1.60-3.17); Alkaline Phosphatase 58 U/L (41-126); BUN/Creat Ratio 12.56 Ratio (12.00-20.00); Blood Urea Nitrogen 11.3 mg/dL (9.0-27.0); Carbon Dioxide 24.2 mmol/L (21.6-31.8); Chloride 101 mmol/L (96-109); Globulin 2.5 d/dL (1.6-3.3); Glucose 80 mg/dL (70-110); Potassium 4.3 mmol/L (3.5-5.5); Rheumatoid Factor, Qnt <15 IU/mL (0-15); Sodium 138 mmol/L (135-145); Total Bilirubin <0.2 mg/dL (0.3-1.2); Total Protein 7.3 d/dL (6.2-8.2)
[2022-10-16 02:36] LABS: Erythrocyte Sedimentation Rate 13 mm/Hr (0-20)
[2022-10-16 04:24] LABS: Centromere Antibody <0.2 AI; Centromere Antibody Interp Negative (Negative); Scleroderma SC-70 Ab <0.2 AI
[2022-10-16 06:03] LABS: Cyclic Citrull Pep IgG Unit <1.5 U/mL (<=3.9); Cyclic Citrullinated Pep IgG Negative
== END | disposition home or self-care (01) ==
LOC: LABWHC1 15:42
PROVIDERS: ATTEND Internal Medicine
DX: M48.02 Spinal stenosis, cervical region (principal); I73.00 Raynaud's syndrome without gangrene
CPT/HCPCS: 36415; 80053; 80061; 84443; 85025; 85652; 86038; 86200; 86215; 86235; 86431

== ENCOUNTER → 2023-01-07 | Outpatient (CLI) | payer OTHER ==
--- NOTE | 2023-01-07 15:54 | XR ---
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 FINDINGS: No evidence of any acute osseous pathology. No evidence of soft tissue swelling. Joints are preserve d. IMPRESSION: 1. No evidence of acute fracture. 2. No significant degeneration changes throughout the bilateral feet.
--- NOTE | 2023-01-07 16:07 | XR ---
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 Findings: Right femur length: 45.2 cm Right tibia length: 37.1 cm Total right length: 82.2 cm Left femur length: 46 cm Left tibial length: 37.5 cm Total left length: 83.4 cm Impression: Limb lengths as described above.
== END | disposition home or self-care (01) ==
LOC: RADXRMAIN 15:12
PROVIDERS: ATTEND Internal Medicine
DX: M72.2 Plantar fascial fibromatosis (principal); M41.9 Scoliosis, unspecified
CPT/HCPCS: 77073